=== PATIENT | female | born 1960 | race Caucasian/White ===

== ENCOUNTER 2020-03-26 13:37 | Inpatient (IN) ==
[2020-03-26] MEDS ORDERED: methylPREDNISolone SOD SUC 125 MG/2 ML VIAL IV STA (14:57)
[2020-03-26] MEDS ORDERED: ALBUTEROL/IPRATROPIUM 3 ML NEB RESP TX STA (14:57)
[2020-03-26 15:08] LABS: Basophils # 0.1 10*3/uL (0.0-0.2); Basophils % 0.6 % (0.0-0.8); Eosinophils # 0.2 10*3/uL (0.0-0.87); Eosinophils % 2.1 % (0.00-10.9); Hematocrit 25.4 VOL% (35.7-47.0); Hemoglobin 7.4 GM/DL (12.0-16.0); Immature Granulocytes % 6.1 %; Immature Granulocytes Absolute 0.66 #; Lymphocytes # 1.2 10*3/uL (1.4-4.0); Mean Corpuscular HGB Conc 29.1 GM/DL (32-36); Mean Corpuscular Volume 96.6 FL (87-102); Mean Platelet Volume 10.5 FL (9.6-12.0); Monocytes % 6.4 % (1.7-12.7); NRBC # 0.12 10*3/uL; Neutrophils % 73.8 % (38.7-73.9); Platelet Count 296 T/CUMM (130-400); Red Blood Count 2.63 MC/CUMM (3.8-5.5); Red Cell Distribution Width 17.6 % (9.3-17.3); White Blood Count 10.8 T/CUMM (4-12)
[2020-03-26 15:19] LABS: Alanine Aminotransferase 22 U/L (13-56); Alkaline Phosphatase 118 U/L (45-117); Aspartate Amino Transferase 17 U/L (0-37); Bilirubin,Total < 0.39 MG/DL (0.2-1.0); Blood Urea Nitrogen 92 MG/DL (7-18); Estimated Glom Filtration Rate 3 ML/MIN; Glucose 84 MG/DL (74-106); Total Protein 7.3 G/DL (6.4-8.3)
[2020-03-26 15:26] LABS: Calcium 6.3 MG/DL (8.5-10.1)
[2020-03-26 15:43] LABS: Band Neutrophils 2 % (0-10); Eosinophils 1 % (0-10); Lymphocytes 14 % (20-55); Macrocytosis 1+; Metamyelocytes 1 %; Nucleated Red Blood Cells 1 (0-5); Platelet Estimate Normal; Segmented Neutrophils 74 % (50-85); Total Cells Counted 100
[2020-03-26 15:44] LABS: Anisocytosis 2+; Hypersegmented Neutrophil 1+; Hypochromasia 2+; Polychromasia 1+
[2020-03-26] MEDS ORDERED: ALBUTEROL INHALER 18 GM INH PRN (17:12)
[2020-03-26] MEDS ORDERED: LACTULOSE 20 GM/30 ML UDCUP PO PRN (17:15)
[2020-03-26] MEDS ORDERED: CALCIUM CARBONATE CHEW 500 MG TABLET PO PRN (17:15)
[2020-03-26] MEDS ORDERED: BISACODYL 5 MG TABLET PO PRN (17:15)
[2020-03-26] MEDS ORDERED: guaiFENesin/DM ER 600-30 MG TABLET PO PRN (17:15)
[2020-03-26] MEDS ORDERED: ONDANSETRON 4 MG/2 ML VIAL IV PRN (17:15)
[2020-03-26] MEDS ORDERED: hydrALAZINE 20 MG/1 ML VIAL IV PRN (17:15)
[2020-03-26] MEDS ORDERED: SIMETHICONE CHEW 125 MG TABLET PO PRN (17:15)
[2020-03-26] MEDS ORDERED: DOCUSATE SODIUM 100 MG CAPSULE PO PRN (17:15)
[2020-03-26] MEDS ORDERED: ZALEPLON 5 MG CAPSULE PO PRN (17:15)
[2020-03-26] MEDS ORDERED: GLUCAGON 1 MG VIAL IM PRN (17:15)
[2020-03-26] MEDS ORDERED: diphenhydrAMINE CAP 25 MG CAPSULE PO PRN (17:15)
[2020-03-26] MEDS ORDERED: ALUMINUM/MAGNES/SIMETH MAX STR 30 ML UDCUP PO PRN (17:15)
[2020-03-26] MEDS ORDERED: SODIUM CHLORIDE 0.9% 1,000 ML IV PRN (17:18)
[2020-03-26 17:28] LABS: ABG Base Excess -14.9 MMOL/L (-2.5-2.5); ABG HCO3 12.6 MMOL/L (20-26); ABG Oxygen Saturation 82.5 % (95-100); ABG PCO2 39.4 MM HG (35-48); ABG PO2 55.3 MM HG (80-95); Allen Test Positive
[2020-03-26] MEDS ORDERED: AZITHROMYCIN INJ 500 MG in SODIUM CHLORIDE 0.9% 250 ML IV SCH (17:30)
[2020-03-26 17:36] LABS: ABG PH 7.135 (7.35-7.45)
[2020-03-26] MEDS ORDERED: FUROSEMIDE 40 MG/4 ML VIAL IV STA (18:06)
[2020-03-26 18:46] LABS: Ferritin 506.5 ng/ml (8-252)
[2020-03-26] MEDS: cefTRIAXone 1,000 MG in SYRINGE 1 EACH IV SCH (19:05)
[2020-03-26] MEDS: INSULIN REGULAR 100 UNIT/ML SUBCUT SCH (20:36)
[2020-03-26] MEDS ORDERED: FUROSEMIDE 20 MG TABLET PO SCH (21:00)
[2020-03-26] MEDS ORDERED: AZITHROMYCIN 250 MG TABLET PO ONE (21:00)
[2020-03-26] MEDS: carvediloL 3.125 MG TABLET PO SCH (21:22)
[2020-03-26] MEDS: ROSUVASTATIN 20 MG TABLET PO SCH (21:23)
[2020-03-26] MEDS: LOSARTAN 50 MG TABLET PO SCH (21:23)
[2020-03-26] MEDS: HEPARIN 5,000 UNIT/1 ML VIAL SUBCUT SCH (21:23)
[2020-03-26] MEDS: traZODone 50 MG TABLET PO PRN (21:24)
[2020-03-26] MEDS: LATANOPROST 0.005% OPH SOLN 2.5 ML BOTTLE BOTH EYES SCH (21:24)
[2020-03-27] MEDS: ALBUTEROL INHALER 18 GM INH SCH ×4 (00:10→18:03)
[2020-03-27 00:17] LABS: ABG Base Excess -14.5 MMOL/L (-2.5-2.5); ABG HCO3 14.1 MMOL/L (20-26); ABG Oxygen Saturation 70.7 % (95-100); ABG PCO2 46.2 MM HG (35-48); ABG PO2 44.3 MM HG (80-95); ABG TCO2 15.5 MMOL/L (23-27); Allen Test Positive
[2020-03-27 00:21] LABS: ABG PH 7.101 (7.35-7.45)
[2020-03-27 05:03] LABS: Basophils % 0.4 % (0.0-0.8); Eosinophils # 0.3 10*3/uL (0.0-0.87); Eosinophils % 3.2 % (0.00-10.9); Hematocrit 23.4 VOL% (35.7-47.0); Hemoglobin 6.5 GM/DL (12.0-16.0); Immature Granulocytes % 6.1 %; Lymphocytes # 1.2 10*3/uL (1.4-4.0); Lymphocytes % 12.3 % (21.3-54.2); Mean Corpuscular HGB Conc 27.8 GM/DL (32-36); Mean Corpuscular Volume 99.2 FL (87-102); Mean Platelet Volume 10.4 FL (9.6-12.0); Monocytes % 7.9 % (1.7-12.7); NRBC # 0.14 10*3/uL; Neutrophils % 70.1 % (38.7-73.9); Platelet Count 257 T/CUMM (130-400); Red Blood Count 2.36 MC/CUMM (3.8-5.5); Red Cell Distribution Width 17.7 % (9.3-17.3); White Blood Count 9.9 T/CUMM (4-12)
[2020-03-27 05:27] LABS: Eosinophils 4 % (0-10); Hypochromasia 1+; Lymphocytes 12 % (20-55); Nucleated Red Blood Cells 2 (0-5); Platelet Estimate Adequate; Segmented Neutrophils 77 % (50-85); Total Cells Counted 100
[2020-03-27 05:28] LABS: Macrocytosis Slight
[2020-03-27 05:57] LABS: Albumin 2.5 G/DL (3.4-5.0); Ferritin 469.1 ng/ml (8-252); Total Protein 6.8 G/DL (6.4-8.3)
[2020-03-27] MEDS: HEPARIN 5,000 UNIT/1 ML VIAL SUBCUT SCH ×2 (06:03→13:53)
[2020-03-27 06:14] LABS: Risk Ratio 4.42; VLDL CHOLESTEROL 42.4 MG/DL
[2020-03-27 06:18] LABS: Calcium 5.7 MG/DL (8.5-10.1)
[2020-03-27 06:58] LABS: Sedimentation Rate-Westergren 105 MM/HR (0-30)
[2020-03-27] MEDS: INSULIN REGULAR 100 UNIT/ML SUBCUT SCH ×4 (07:54→20:06)
[2020-03-27] MEDS: FUROSEMIDE 20 MG/2 ML VIAL IV SCH ×2 (08:32→17:07)
[2020-03-27] MEDS: carvediloL 3.125 MG TABLET PO SCH ×2 (08:33→21:11)
[2020-03-27] MEDS: amLODIPine 10 MG TABLET PO SCH (08:33)
[2020-03-27] MEDS: LOSARTAN 50 MG TABLET PO SCH ×2 (08:33→21:11)
[2020-03-27] MEDS: INSULIN NPH/REGULAR 70/30 100 UNIT/ML SUBCUT SCH (08:33)
[2020-03-27] MEDS: LORATADINE 10 MG TABLET PO SCH (08:33)
[2020-03-27] MEDS: PANTOPRAZOLE 40 MG TABLET PO SCH (08:33)
[2020-03-27] MEDS ORDERED: FENOFIBRATE 48 MG TABLET PO SCH (09:00)
[2020-03-27] MEDS ORDERED: POTASSIUM CHLORIDE 8 MEQ CAPSULE PO SCH (09:00)
[2020-03-27] MEDS ORDERED: BUPIVACAINE 0.25% /EPI 10 ML VIAL ONE (10:26)
[2020-03-27] MEDS ORDERED: HEPARIN 5,000 UNIT/1 ML VIAL ONE (10:26)
[2020-03-27] MEDS ORDERED: LIDOCAINE 1%/EPI INJ 20 ML VIAL ONE (10:26)
[2020-03-27] MEDS ORDERED: MIDAZOLAM 2 MG/2 ML VIAL ONE (11:46)
[2020-03-27 12:10] LABS: Hepatitis B Core IgM Quant 0.19 Index; Hepatitis B Surface Ag Quant 0.16 Index; Hepatitis B Surface Ag Result Negative (Negative); Hepatitis C Virus Ab Quant 0.09 Index; Hepatitis C Virus Ab Result Negative (Negative)
[2020-03-27] MEDS ORDERED: HEPARIN 10,000 UNIT/10 ML VIAL IV SCH (14:15)
[2020-03-27] MEDS ORDERED: INSULIN NPH/REGULAR 70/30 100 UNIT/ML SUBCUT SCH (16:30)
[2020-03-27] MEDS: HEPARIN DRIP 25,000 UNITS/500 ML PREMIX IV SCH (17:08)
[2020-03-27] MEDS ORDERED: EZETIMIBE 10 MG TABLET PO SCH (21:00)
[2020-03-27] MEDS: ROSUVASTATIN 20 MG TABLET PO SCH (21:11)
[2020-03-27] MEDS: cefTRIAXone 1,000 MG in SYRINGE 1 EACH IV SCH (21:12)
[2020-03-27] MEDS: LATANOPROST 0.005% OPH SOLN 2.5 ML BOTTLE BOTH EYES SCH (21:12)
[2020-03-27] MEDS: AZITHROMYCIN 250 MG TABLET PO SCH (21:12)
[2020-03-27] MEDS: ACETAMINOPHEN 325 MG TABLET PO PRN (21:13)
[2020-03-28] MEDS: ALBUTEROL INHALER 18 GM INH SCH ×4 (00:42→20:32)
[2020-03-28 01:45] LABS: Basophils # 0.1 10*3/uL (0.0-0.2); Basophils % 0.5 % (0.0-0.8); Eosinophils # 0.3 10*3/uL (0.0-0.87); Eosinophils % 3.4 % (0.00-10.9); Hematocrit 30.1 VOL% (35.7-47.0); Immature Granulocytes % 2.8 %; Immature Granulocytes Absolute 0.28 #; Lymphocytes # 1.1 10*3/uL (1.4-4.0); Lymphocytes % 11.1 % (21.3-54.2); Mean Corpuscular HGB Conc 30.6 GM/DL (32-36); Mean Corpuscular Volume 91.2 FL (87-102); Mean Platelet Volume 10.8 FL (9.6-12.0); Monocytes % 8.7 % (1.7-12.7); NRBC # 0.14 10*3/uL; Neutrophils % 73.5 % (38.7-73.9); Platelet Count 229 T/CUMM (130-400); Red Cell Distribution Width 17.9 % (9.3-17.3); White Blood Count 10.1 T/CUMM (4-12)
[2020-03-28 01:48] LABS: Hemoglobin 9.2 GM/DL (12.0-16.0)
[2020-03-28 02:37] LABS: Alanine Aminotransferase 17 U/L (13-56); Albumin 2.4 G/DL (3.4-5.0); Alkaline Phosphatase 88 U/L (45-117); Aspartate Amino Transferase 18 U/L (0-37); Bilirubin,Total < 0.39 MG/DL (0.2-1.0); Blood Urea Nitrogen 61 MG/DL (7-18); Calcium 6.1 MG/DL (8.5-10.1); Estimated Glom Filtration Rate 4 ML/MIN; Osmolality,Calculated 292.4 MOS/KG (273-304); Total Protein 6.7 G/DL (6.4-8.3)
[2020-03-28 02:42] LABS: Glucose 46 MG/DL (74-106)
[2020-03-28 03:54] LABS: Sedimentation Rate-Westergren 87 MM/HR (0-30)
[2020-03-28] MEDS ORDERED: DEXTROSE 10% 250 ML BAG IV PRN (04:47)
[2020-03-28] MEDS ORDERED: DEXTROSE 50% 25 GM/50 ML SYRINGE IV ONE (05:00)
[2020-03-28] MEDS: DEXTROSE 10% 250 ML BAG IV PRN ×3 (06:38→11:27)
[2020-03-28] MEDS: carvediloL 3.125 MG TABLET PO SCH ×2 (09:07→20:32)
[2020-03-28] MEDS: FUROSEMIDE 20 MG/2 ML VIAL IV SCH ×2 (09:07→15:26)
[2020-03-28] MEDS: PANTOPRAZOLE 40 MG TABLET PO SCH (09:07)
[2020-03-28] MEDS: LORATADINE 10 MG TABLET PO SCH (09:07)
[2020-03-28] MEDS: amLODIPine 10 MG TABLET PO SCH (09:07)
[2020-03-28] MEDS: LOSARTAN 50 MG TABLET PO SCH ×2 (09:07→20:33)
[2020-03-28] MEDS: INSULIN NPH/REGULAR 70/30 100 UNIT/ML SUBCUT SCH (09:36)
[2020-03-28] MEDS: INSULIN REGULAR 100 UNIT/ML SUBCUT SCH ×2 (09:36→12:48)
[2020-03-28] MEDS: DEXTROSE 5% 1,000 ML IV SCH (12:04)
[2020-03-28] MEDS: HEPARIN DRIP 25,000 UNITS/500 ML PREMIX IV SCH ×2 (15:01→20:00)
[2020-03-28] MEDS: WARFARIN 5 MG TABLET PO SCH (20:32)
[2020-03-28] MEDS: cefTRIAXone 1,000 MG in SYRINGE 1 EACH IV SCH (20:33)
[2020-03-28] MEDS: ROSUVASTATIN 20 MG TABLET PO SCH (20:33)
[2020-03-28] MEDS: AZITHROMYCIN 250 MG TABLET PO SCH (20:34)
[2020-03-28] MEDS: LATANOPROST 0.005% OPH SOLN 2.5 ML BOTTLE BOTH EYES SCH (22:02)
[2020-03-29] MEDS: ALBUTEROL INHALER 18 GM INH SCH ×4 (00:07→20:01)
[2020-03-29 06:55] LABS: Basophils # 0.1 10*3/uL (0.0-0.2); Basophils % 0.5 % (0.0-0.8); Eosinophils # 0.3 10*3/uL (0.0-0.87); Hematocrit 30.6 VOL% (35.7-47.0); Hemoglobin 9.3 GM/DL (12.0-16.0); Immature Granulocytes % 2.1 %; Lymphocytes # 1.3 10*3/uL (1.4-4.0); Lymphocytes % 13.7 % (21.3-54.2); Mean Corpuscular HGB Conc 30.4 GM/DL (32-36); Mean Platelet Volume 10.6 FL (9.6-12.0); Monocytes % 12.1 % (1.7-12.7); NRBC # 0.04 10*3/uL; Neutrophils % 68.6 % (38.7-73.9); Platelet Count 241 T/CUMM (130-400); Red Cell Distribution Width 17.5 % (9.3-17.3); White Blood Count 9.5 T/CUMM (4-12)
[2020-03-29 07:27] LABS: Alanine Aminotransferase 14 U/L (13-56); Albumin 2.2 G/DL (3.4-5.0); Alkaline Phosphatase 77 U/L (45-117); Aspartate Amino Transferase 16 U/L (0-37); Bilirubin,Total < 0.39 MG/DL (0.2-1.0); Blood Urea Nitrogen 29 MG/DL (7-18); Calcium 6.5 MG/DL (8.5-10.1); Estimated Glom Filtration Rate 7 ML/MIN; Glucose 99 MG/DL (74-106); Osmolality,Calculated 273.2 MOS/KG (273-304); Total Protein 6.5 G/DL (6.4-8.3)
[2020-03-29] MEDS: PANTOPRAZOLE 40 MG TABLET PO SCH (08:30)
[2020-03-29] MEDS: amLODIPine 10 MG TABLET PO SCH (08:31)
[2020-03-29] MEDS: carvediloL 3.125 MG TABLET PO SCH ×2 (08:31→20:01)
[2020-03-29] MEDS: LORATADINE 10 MG TABLET PO SCH (08:31)
[2020-03-29] MEDS: LOSARTAN 50 MG TABLET PO SCH ×2 (08:31→20:01)
[2020-03-29] MEDS: FUROSEMIDE 20 MG/2 ML VIAL IV SCH ×2 (08:31→15:08)
[2020-03-29 09:33] LABS: Sedimentation Rate-Westergren 73 MM/HR (0-30)
[2020-03-29 11:44] LABS: INR 1.2; PT Patient Result 12.9 SECS (9.8-11.9)
[2020-03-29] MEDS: DEXTROSE 5% 1,000 ML IV SCH (15:12)
[2020-03-29 16:18] LABS: INR 1.1; PT Patient Result 11.9 SECS (9.8-11.9)
[2020-03-29] MEDS: LATANOPROST 0.005% OPH SOLN 2.5 ML BOTTLE BOTH EYES SCH (20:01)
[2020-03-29] MEDS: WARFARIN 5 MG TABLET PO SCH (20:01)
[2020-03-29] MEDS: ROSUVASTATIN 20 MG TABLET PO SCH (20:01)
[2020-03-29] MEDS: cefTRIAXone 1,000 MG in SYRINGE 1 EACH IV SCH (20:01)
[2020-03-29] MEDS: AZITHROMYCIN 250 MG TABLET PO SCH (20:01)
[2020-03-29] MEDS: traZODone 50 MG TABLET PO PRN (20:01)
[2020-03-30] MEDS: ALBUTEROL INHALER 18 GM INH SCH ×4 (01:07→19:17)
[2020-03-30 05:37] LABS: Basophils % 0.4 % (0.0-0.8); Eosinophils # 0.3 10*3/uL (0.0-0.87); Hematocrit 30.7 VOL% (35.7-47.0); Hemoglobin 9.4 GM/DL (12.0-16.0); Immature Granulocytes % 1.3 %; Immature Granulocytes Absolute 0.12 #; Lymphocytes # 1.5 10*3/uL (1.4-4.0); Lymphocytes % 16.6 % (21.3-54.2); Mean Corpuscular HGB Conc 30.6 GM/DL (32-36); Mean Corpuscular Volume 90.3 FL (87-102); Mean Platelet Volume 10.5 FL (9.6-12.0); Monocytes % 13.6 % (1.7-12.7); NRBC # 0.03 10*3/uL; Neutrophils % 65.1 % (38.7-73.9); Platelet Count 215 T/CUMM (130-400); Red Cell Distribution Width 17.2 % (9.3-17.3); White Blood Count 8.9 T/CUMM (4-12)
[2020-03-30] MEDS: DEXTROSE 5% 1,000 ML IV SCH (05:39)
[2020-03-30 06:05] LABS: Albumin 2.1 G/DL (3.4-5.0); Bilirubin,Total 0.4 MG/DL (0.2-1.0); Calcium 6.8 MG/DL (8.5-10.1); Osmolality,Calculated 272.1 MOS/KG (273-304); Total Protein 6.1 G/DL (6.4-8.3)
[2020-03-30 06:20] LABS: INR 1.1; PT Patient Result 11.7 SECS (9.8-11.9)
[2020-03-30] MEDS: LOSARTAN 50 MG TABLET PO SCH ×2 (08:47→22:00)
[2020-03-30] MEDS: LORATADINE 10 MG TABLET PO SCH (08:47)
[2020-03-30] MEDS: PANTOPRAZOLE 40 MG TABLET PO SCH (08:47)
[2020-03-30] MEDS: amLODIPine 10 MG TABLET PO SCH (08:47)
[2020-03-30] MEDS: carvediloL 3.125 MG TABLET PO SCH ×2 (08:47→22:00)
[2020-03-30] MEDS: FUROSEMIDE 20 MG/2 ML VIAL IV SCH ×2 (08:48→15:41)
[2020-03-30] MEDS: HEPARIN DRIP 25,000 UNITS/500 ML PREMIX IV SCH (08:53)
[2020-03-30] MEDS: HEPARIN 5,000 UNIT/1 ML VIAL IV PRN (08:56)
[2020-03-30 12:27] LABS: Sedimentation Rate-Westergren 80 MM/HR (0-30)
[2020-03-30] MEDS: AZITHROMYCIN 250 MG TABLET PO SCH (22:00)
[2020-03-30] MEDS: ROSUVASTATIN 20 MG TABLET PO SCH (22:00)
[2020-03-30] MEDS: LATANOPROST 0.005% OPH SOLN 2.5 ML BOTTLE BOTH EYES SCH (23:02)
[2020-03-30] MEDS: WARFARIN 3 MG TABLET PO SCH (23:27)
[2020-03-31] MEDS: cefTRIAXone 1,000 MG in SYRINGE 1 EACH IV SCH ×2 (01:21→21:20)
[2020-03-31] MEDS: ALBUTEROL INHALER 18 GM INH SCH ×4 (01:26→21:20)
[2020-03-31] MEDS: DEXTROSE 5% 1,000 ML IV SCH ×2 (06:22→22:18)
[2020-03-31] MEDS: FUROSEMIDE 20 MG/2 ML VIAL IV SCH ×2 (08:26→15:57)
[2020-03-31] MEDS: LOSARTAN 50 MG TABLET PO SCH ×2 (08:26→21:21)
[2020-03-31] MEDS: carvediloL 3.125 MG TABLET PO SCH ×2 (08:26→21:20)
[2020-03-31] MEDS: amLODIPine 10 MG TABLET PO SCH (08:26)
[2020-03-31] MEDS: PANTOPRAZOLE 40 MG TABLET PO SCH (08:26)
[2020-03-31] MEDS: LORATADINE 10 MG TABLET PO SCH (08:26)
[2020-03-31 08:28] LABS: INR 1.2; PT Patient Result 12.6 SECS (9.8-11.9)
[2020-03-31] MEDS: HEPARIN 5,000 UNIT/1 ML VIAL IV PRN (09:00)
[2020-03-31] MEDS: HEPARIN DRIP 25,000 UNITS/500 ML PREMIX IV SCH (12:02)
[2020-03-31] MEDS: ROSUVASTATIN 20 MG TABLET PO SCH (21:21)
[2020-03-31] MEDS: WARFARIN 3 MG TABLET PO SCH (21:21)
[2020-03-31] MEDS: LATANOPROST 0.005% OPH SOLN 2.5 ML BOTTLE BOTH EYES SCH (22:19)
[2020-04-01] MEDS: ALBUTEROL INHALER 18 GM INH SCH ×4 (01:47→21:44)
[2020-04-01 03:21] LABS: Basophils % 0.3 % (0.0-0.8); Eosinophils # 0.3 10*3/uL (0.0-0.87); Eosinophils % 3.2 % (0.00-10.9); Hematocrit 31.5 VOL% (35.7-47.0); Hemoglobin 9.5 GM/DL (12.0-16.0); Immature Granulocytes % 0.7 %; Immature Granulocytes Absolute 0.07 #; Lymphocytes # 1.3 10*3/uL (1.4-4.0); Lymphocytes % 12.7 % (21.3-54.2); Mean Corpuscular HGB Conc 30.2 GM/DL (32-36); Mean Corpuscular Volume 91.8 FL (87-102); Mean Platelet Volume 10.7 FL (9.6-12.0); Monocytes % 10.6 % (1.7-12.7); Neutrophils % 72.5 % (38.7-73.9); Platelet Count 230 T/CUMM (130-400); Red Blood Count 3.43 MC/CUMM (3.8-5.5); Red Cell Distribution Width 16.6 % (9.3-17.3); White Blood Count 10.1 T/CUMM (4-12)
[2020-04-01 03:30] LABS: Calcium 6.4 MG/DL (8.5-10.1); Osmolality,Calculated 279.4 MOS/KG (273-304)
[2020-04-01 03:47] LABS: INR 1.3
[2020-04-01 09:16] LABS: Partial Thromboplastin Time 152.6 SECS (23.9-33.8)
[2020-04-01] MEDS: FUROSEMIDE 20 MG/2 ML VIAL IV SCH ×2 (14:49→16:54)
[2020-04-01] MEDS: carvediloL 3.125 MG TABLET PO SCH ×2 (14:52→21:44)
[2020-04-01] MEDS: PANTOPRAZOLE 40 MG TABLET PO SCH (14:52)
[2020-04-01] MEDS: LORATADINE 10 MG TABLET PO SCH (14:52)
[2020-04-01] MEDS: HEPARIN DRIP 25,000 UNITS/500 ML PREMIX IV SCH (14:58)
[2020-04-01] MEDS: amLODIPine 10 MG TABLET PO SCH (15:11)
[2020-04-01] MEDS: LOSARTAN 50 MG TABLET PO SCH ×2 (15:11→21:44)
[2020-04-01] MEDS ORDERED: WARFARIN 7.5 MG TABLET PO SCH (18:00)
[2020-04-01] MEDS: cefTRIAXone 1,000 MG in SYRINGE 1 EACH IV SCH (21:44)
[2020-04-01] MEDS: ROSUVASTATIN 20 MG TABLET PO SCH (21:44)
[2020-04-01] MEDS: LATANOPROST 0.005% OPH SOLN 2.5 ML BOTTLE BOTH EYES SCH (22:58)
[2020-04-02] MEDS: ALBUTEROL INHALER 18 GM INH SCH ×4 (01:47→18:03)
[2020-04-02 03:38] LABS: Basophils % 0.5 % (0.0-0.8); Eosinophils # 0.2 10*3/uL (0.0-0.87); Eosinophils % 2.8 % (0.00-10.9); Hematocrit 28.6 VOL% (35.7-47.0); Hemoglobin 8.5 GM/DL (12.0-16.0); Immature Granulocytes % 0.5 %; Immature Granulocytes Absolute 0.04 #; Lymphocytes # 1.2 10*3/uL (1.4-4.0); Lymphocytes % 15.6 % (21.3-54.2); Mean Corpuscular HGB Conc 29.7 GM/DL (32-36); Mean Corpuscular Volume 92.6 FL (87-102); Mean Platelet Volume 10.5 FL (9.6-12.0); Monocytes % 11.6 % (1.7-12.7); Platelet Count 203 T/CUMM (130-400); Red Blood Count 3.09 MC/CUMM (3.8-5.5); Red Cell Distribution Width 16.3 % (9.3-17.3); White Blood Count 7.8 T/CUMM (4-12)
[2020-04-02 03:51] LABS: INR 1.5; PT Patient Result 15.6 SECS (9.8-11.9)
[2020-04-02 03:58] LABS: Calcium 6.6 MG/DL (8.5-10.1); Osmolality,Calculated 278.8 MOS/KG (273-304)
[2020-04-02] MEDS: HEPARIN DRIP 25,000 UNITS/500 ML PREMIX IV SCH (09:27)
[2020-04-02] MEDS: amLODIPine 10 MG TABLET PO SCH (09:28)
[2020-04-02] MEDS: carvediloL 3.125 MG TABLET PO SCH ×2 (09:28→20:00)
[2020-04-02] MEDS: PANTOPRAZOLE 40 MG TABLET PO SCH (09:28)
[2020-04-02] MEDS: LORATADINE 10 MG TABLET PO SCH (09:28)
[2020-04-02] MEDS: LOSARTAN 50 MG TABLET PO SCH ×2 (09:28→20:00)
[2020-04-02] MEDS: FUROSEMIDE 20 MG/2 ML VIAL IV SCH ×2 (09:38→17:55)
[2020-04-02] MEDS: DEXTROSE 5% 1,000 ML IV SCH ×2 (09:38→11:28)
[2020-04-02] MEDS: WARFARIN 7.5 MG TABLET PO SCH (17:55)
[2020-04-02] MEDS: ROSUVASTATIN 20 MG TABLET PO SCH (20:00)
[2020-04-02] MEDS: cefTRIAXone 1,000 MG in SYRINGE 1 EACH IV SCH (20:02)
[2020-04-02] MEDS: LATANOPROST 0.005% OPH SOLN 2.5 ML BOTTLE BOTH EYES SCH (21:00)
[2020-04-03] MEDS: ALBUTEROL INHALER 18 GM INH SCH ×3 (01:20→21:45)
[2020-04-03 05:00] LABS: Basophils % 0.4 % (0.0-0.8); Eosinophils # 0.2 10*3/uL (0.0-0.87); Eosinophils % 3.2 % (0.00-10.9); Hematocrit 27.4 VOL% (35.7-47.0); Hemoglobin 8.1 GM/DL (12.0-16.0); Immature Granulocytes % 0.7 %; Immature Granulocytes Absolute 0.05 #; Lymphocytes # 1.2 10*3/uL (1.4-4.0); Lymphocytes % 16.3 % (21.3-54.2); Mean Corpuscular HGB Conc 29.6 GM/DL (32-36); Mean Corpuscular Volume 92.9 FL (87-102); Mean Platelet Volume 10.8 FL (9.6-12.0); Monocytes % 12.3 % (1.7-12.7); Neutrophils % 67.1 % (38.7-73.9); Platelet Count 210 T/CUMM (130-400); Red Blood Count 2.95 MC/CUMM (3.8-5.5); Red Cell Distribution Width 16.2 % (9.3-17.3); White Blood Count 7.6 T/CUMM (4-12)
[2020-04-03 05:12] LABS: Calcium 6.2 MG/DL (8.5-10.1); INR 1.4; Osmolality,Calculated 272.4 MOS/KG (273-304); PT Patient Result 14.8 SECS (9.8-11.9)
[2020-04-03] MEDS: HEPARIN DRIP 25,000 UNITS/500 ML PREMIX IV SCH (05:34)
[2020-04-03] MEDS: PANTOPRAZOLE 40 MG TABLET PO SCH (08:36)
[2020-04-03] MEDS: carvediloL 3.125 MG TABLET PO SCH ×2 (08:36→21:45)
[2020-04-03] MEDS: FUROSEMIDE 20 MG/2 ML VIAL IV SCH ×2 (08:36→15:23)
[2020-04-03] MEDS: LORATADINE 10 MG TABLET PO SCH (08:37)
[2020-04-03] MEDS: amLODIPine 10 MG TABLET PO SCH (08:37)
[2020-04-03] MEDS: LOSARTAN 50 MG TABLET PO SCH ×2 (08:37→21:45)
[2020-04-03] MEDS: DEXTROSE 5% 1,000 ML IV SCH (08:37)
[2020-04-03] MEDS: WARFARIN 5 MG TABLET PO SCH (17:10)
[2020-04-03 21:03] LABS: INR 1.5; PT Patient Result 15.8 SECS (9.8-11.9)
[2020-04-03] MEDS: LATANOPROST 0.005% OPH SOLN 2.5 ML BOTTLE BOTH EYES SCH (21:45)
[2020-04-03] MEDS: ROSUVASTATIN 20 MG TABLET PO SCH (21:45)
[2020-04-03] MEDS: traZODone 50 MG TABLET PO PRN (22:26)
[2020-04-04] MEDS: ALBUTEROL INHALER 18 GM INH SCH ×3 (00:35→13:06)
[2020-04-04] MEDS: DEXTROSE 5% 1,000 ML IV SCH ×2 (05:05→21:58)
[2020-04-04] MEDS: HEPARIN DRIP 25,000 UNITS/500 ML PREMIX IV SCH (05:08)
[2020-04-04 07:17] LABS: Basophils % 0.4 % (0.0-0.8); Eosinophils # 0.2 10*3/uL (0.0-0.87); Eosinophils % 3.2 % (0.00-10.9); Hematocrit 28.7 VOL% (35.7-47.0); Hemoglobin 8.6 GM/DL (12.0-16.0); Immature Granulocytes % 0.4 %; Immature Granulocytes Absolute 0.03 #; Lymphocytes # 1.3 10*3/uL (1.4-4.0); Lymphocytes % 17.2 % (21.3-54.2); Mean Platelet Volume 11.2 FL (9.6-12.0); Neutrophils % 68.8 % (38.7-73.9); Platelet Count 234 T/CUMM (130-400); Red Blood Count 3.12 MC/CUMM (3.8-5.5); Red Cell Distribution Width 16.3 % (9.3-17.3); White Blood Count 7.4 T/CUMM (4-12)
[2020-04-04 07:29] LABS: INR 1.6; PT Patient Result 17.1 SECS (9.8-11.9)
[2020-04-04 07:33] LABS: Calcium 7.2 MG/DL (8.5-10.1); Osmolality,Calculated 279.5 MOS/KG (273-304)
[2020-04-04] MEDS: LORATADINE 10 MG TABLET PO SCH (08:54)
[2020-04-04] MEDS: LOSARTAN 50 MG TABLET PO SCH ×2 (08:54→21:53)
[2020-04-04] MEDS: amLODIPine 10 MG TABLET PO SCH (08:54)
[2020-04-04] MEDS: carvediloL 3.125 MG TABLET PO SCH ×2 (08:54→21:53)
[2020-04-04] MEDS: FUROSEMIDE 20 MG/2 ML VIAL IV SCH ×2 (08:56→16:49)
[2020-04-04] MEDS: PANTOPRAZOLE 40 MG TABLET PO SCH (09:11)
[2020-04-04] MEDS: WARFARIN 5 MG TABLET PO SCH (17:24)
[2020-04-04] MEDS: ROSUVASTATIN 20 MG TABLET PO SCH (21:53)
[2020-04-04] MEDS: LATANOPROST 0.005% OPH SOLN 2.5 ML BOTTLE BOTH EYES SCH (21:58)
[2020-04-05] MEDS: DEXTROSE 5% 1,000 ML IV SCH ×2 (00:14→18:49)
[2020-04-05 03:20] LABS: INR 1.7; PT Patient Result 17.9 SECS (9.8-11.9)
[2020-04-05] MEDS: HEPARIN DRIP 25,000 UNITS/500 ML PREMIX IV SCH ×2 (06:10→07:46)
[2020-04-05] MEDS: FUROSEMIDE 20 MG/2 ML VIAL IV SCH ×2 (11:44→15:35)
[2020-04-05] MEDS: amLODIPine 10 MG TABLET PO SCH (11:44)
[2020-04-05] MEDS: LORATADINE 10 MG TABLET PO SCH (11:45)
[2020-04-05] MEDS: LOSARTAN 50 MG TABLET PO SCH ×2 (11:45→21:56)
[2020-04-05] MEDS: PANTOPRAZOLE 40 MG TABLET PO SCH (11:45)
[2020-04-05] MEDS: carvediloL 3.125 MG TABLET PO SCH ×2 (11:45→21:56)
[2020-04-05] MEDS: ALBUTEROL INHALER 18 GM INH SCH ×2 (11:49→15:56)
[2020-04-05] MEDS: WARFARIN 5 MG TABLET PO SCH (17:21)
[2020-04-05] MEDS: ROSUVASTATIN 20 MG TABLET PO SCH (21:55)
[2020-04-05] MEDS: traZODone 50 MG TABLET PO PRN (21:58)
[2020-04-05] MEDS: ACETAMINOPHEN 325 MG TABLET PO PRN (21:58)
[2020-04-06] MEDS: LATANOPROST 0.005% OPH SOLN 2.5 ML BOTTLE BOTH EYES SCH ×2 (04:41→20:59)
[2020-04-06 06:27] LABS: INR 1.8; PT Patient Result 18.9 SECS (9.8-11.9)
[2020-04-06] MEDS: ALBUTEROL INHALER 18 GM INH SCH ×3 (08:26→18:56)
[2020-04-06] MEDS: LOSARTAN 50 MG TABLET PO SCH ×2 (08:27→20:58)
[2020-04-06] MEDS: carvediloL 3.125 MG TABLET PO SCH ×2 (08:27→20:58)
[2020-04-06] MEDS: amLODIPine 10 MG TABLET PO SCH (08:27)
[2020-04-06] MEDS: FUROSEMIDE 20 MG/2 ML VIAL IV SCH ×2 (08:29→15:48)
[2020-04-06] MEDS: LORATADINE 10 MG TABLET PO SCH (08:30)
[2020-04-06] MEDS: PANTOPRAZOLE 40 MG TABLET PO SCH (08:30)
[2020-04-06] MEDS: HEPARIN DRIP 25,000 UNITS/500 ML PREMIX IV SCH ×2 (13:49→13:59)
[2020-04-06] MEDS: DEXTROSE 5% 1,000 ML IV SCH ×2 (15:53→16:46)
[2020-04-06] MEDS: WARFARIN 7.5 MG TABLET PO SCH (17:27)
[2020-04-06] MEDS: ROSUVASTATIN 20 MG TABLET PO SCH (20:57)
[2020-04-06] MEDS: ACETAMINOPHEN 325 MG TABLET PO PRN (20:58)
[2020-04-06] MEDS: traZODone 50 MG TABLET PO PRN (20:58)
[2020-04-07 02:48] LABS: PT Patient Result 20.3 SECS (9.8-11.9)
[2020-04-07] MEDS: ALBUTEROL INHALER 18 GM INH SCH ×3 (07:00→13:00)
[2020-04-07] MEDS: HEPARIN DRIP 25,000 UNITS/500 ML PREMIX IV SCH (08:00)
[2020-04-07] MEDS: FUROSEMIDE 20 MG/2 ML VIAL IV SCH (09:09)
[2020-04-07] MEDS: carvediloL 3.125 MG TABLET PO SCH (09:10)
[2020-04-07] MEDS: LOSARTAN 50 MG TABLET PO SCH (09:10)
[2020-04-07] MEDS: PANTOPRAZOLE 40 MG TABLET PO SCH (09:10)
[2020-04-07] MEDS: LORATADINE 10 MG TABLET PO SCH (09:10)
[2020-04-07] MEDS: amLODIPine 10 MG TABLET PO SCH (09:10)
[2020-04-07 11:55] VITALS: BP 137/69
[2020-04-07] MEDS: DEXTROSE 5% 1,000 ML IV SCH (12:00)
== END 2020-04-07 15:25 | disposition home or self-care (01) | DRG 193 ==
LOC: N.ED 13:37 → SUATTDRO 17:15 → N.EDINP 17:15 → N.2E 19:34 → N.3E 03-30 18:14
PROVIDERS: ADMIT Phlebology; ATTEND Internal Medicine

== ENCOUNTER 2020-11-13 13:39 | Inpatient (IN) ==
[2020-11-13] MEDS ORDERED: cefTRIAXone 1,000 MG in SODIUM CHLORIDE 0.9% 100 ML IV STA (13:51)
[2020-11-13] MEDS ORDERED: methylPREDNISolone SOD SUC 125 MG/2 ML VIAL IV STA (13:51)
[2020-11-13] MEDS ORDERED: ALBUTEROL/IPRATROPIUM 3 ML NEB RESP TX STA (13:51)
[2020-11-13] MEDS ORDERED: ETOMIDATE 20 MG/10 ML VIAL IV ONE (13:53)
[2020-11-13] MEDS ORDERED: ROCURONIUM 100 MG/10 ML VIAL IV ONE (13:54)
[2020-11-13 14:17] LABS: ABG Base Excess -3.7 MMOL/L (-2.5-2.5); ABG Oxygen Saturation 75.2 % (95-100); ABG PO2 56.3 MM HG (80-95); ABG TCO2 28.8 MMOL/L (23-27)
[2020-11-13 14:23] LABS: ABG PH 7.076 (7.35-7.45)
[2020-11-13 14:30] LABS: Basophils # 0.1 10*3/uL (0.0-0.2); Basophils % 0.6 % (0.0-0.8); Eosinophils # 0.6 10*3/uL (0.0-0.87); Eosinophils % 3.2 % (0.00-10.9); Hemoglobin 11.4 GM/DL (12.0-16.0); Immature Granulocytes Absolute 0.18 #; Lymphocytes # 6.4 10*3/uL (1.4-4.0); Mean Corpuscular HGB Conc 27.8 GM/DL (32-36); Mean Corpuscular Volume 102.5 FL (87-102); Mean Platelet Volume 11.1 FL (9.6-12.0); Monocytes % 7.3 % (1.7-12.7); NRBC # 0.04 10*3/uL; Neutrophils % 53.9 % (38.7-73.9); Platelet Count 298 T/CUMM (130-400); Red Cell Distribution Width 16.7 % (9.3-17.3); White Blood Count 18.7 T/CUMM (4-12)
[2020-11-13 14:38] LABS: Albumin 3.4 G/DL (3.4-5.0); Bilirubin,Total 0.9 MG/DL (0.2-1.0); Calcium 8.1 MG/DL (8.5-10.1); Osmolality,Calculated 295.4 MOS/KG (273-304); Potassium 3.4 MMOL/L (3.5-5.1); Total Protein 8.2 G/DL (6.4-8.3)
[2020-11-13 15:27] LABS: Anisocytosis 1+; Macrocytosis 1+
[2020-11-13 15:28] LABS: Hypochromasia 1+; Polychromasia Few
[2020-11-13 15:29] LABS: Platelet Estimate Adequate
[2020-11-13] MEDS ORDERED: ONDANSETRON 4 MG/2 ML VIAL IV PRN (15:57)
[2020-11-13] MEDS ORDERED: ACETAMINOPHEN 325 MG TABLET PO PRN (15:57)
[2020-11-13] MEDS ORDERED: DOCUSATE SODIUM 100 MG CAPSULE PO PRN (15:57)
[2020-11-13] MEDS ORDERED: POTASSIUM CHLORIDE 20 MEQ/15 ML UDCUP PO ONE (16:16)
[2020-11-13 16:58] LABS: ABG Base Excess 1.2 MMOL/L (-2.5-2.5); ABG HCO3 25.6 MMOL/L (20-26); ABG PCO2 27.2 MM HG (35-48); ABG PH 7.535 (7.35-7.45); ABG TCO2 20.6 MMOL/L (23-27)
[2020-11-13] MEDS: HEPARIN 5,000 UNIT/1 ML VIAL SUBCUT SCH (17:22)
[2020-11-13] MEDS: PANTOPRAZOLE 40 MG VIAL IV SCH (17:25)
[2020-11-13] MEDS: PIPERACILLIN/TAZOBACTAM 3,375 MG in SODIUM CHLORIDE 0.9% 100 ML IV SCH (17:25)
[2020-11-13] MEDS: INSULIN LISPRO 100 UNIT/ML SUBCUT SCH ×2 (17:45→23:16)
[2020-11-13] MEDS: hydrALAZINE 20 MG/1 ML VIAL IV PRN (18:53)
[2020-11-13] MEDS: ALBUTEROL/IPRATROPIUM 3 ML NEB RESP TX SCH (20:10)
[2020-11-13] MEDS: methylPREDNISolone SOD SUC 40 MG/1 ML VIAL IV SCH (20:55)
[2020-11-13] MEDS ORDERED: VANCOMYCIN INJ 1,500 MG in SODIUM CHLORIDE 0.9% 500 ML IV ONE (21:00)
[2020-11-14] MEDS: hydrALAZINE 20 MG/1 ML VIAL IV PRN (00:47)
[2020-11-14] MEDS: ALBUTEROL/IPRATROPIUM 3 ML NEB RESP TX SCH ×4 (00:58→19:25)
[2020-11-14] MEDS: HEPARIN 5,000 UNIT/1 ML VIAL SUBCUT SCH ×3 (01:01→17:50)
[2020-11-14 04:18] LABS: ABG Base Excess -0.3 MMOL/L (-2.5-2.5); ABG HCO3 20.5 MMOL/L (20-26); ABG Oxygen Saturation 99.1 % (95-100); ABG PCO2 22.9 MM HG (35-48); ABG PH 7.569 (7.35-7.45); ABG PO2 214.3 MM HG (80-95); ABG TCO2 21.2 MMOL/L (23-27)
[2020-11-14] MEDS: PIPERACILLIN/TAZOBACTAM 3,375 MG in SODIUM CHLORIDE 0.9% 100 ML IV SCH ×2 (05:11→17:50)
[2020-11-14 05:41] LABS: Basophils % 0.2 % (0.0-0.8); Hematocrit 34.7 VOL% (35.7-47.0); Immature Granulocytes % 0.8 %; Immature Granulocytes Absolute 0.07 #; Lymphocytes # 0.8 10*3/uL (1.4-4.0); Lymphocytes % 9.7 % (21.3-54.2); Mean Corpuscular HGB Conc 31.7 GM/DL (32-36); Mean Corpuscular Volume 90.1 FL (87-102); Mean Platelet Volume 11.4 FL (9.6-12.0); Monocytes % 2.3 % (1.7-12.7); Platelet Count 210 T/CUMM (130-400); Red Blood Count 3.85 MC/CUMM (3.8-5.5); Red Cell Distribution Width 16.9 % (9.3-17.3); White Blood Count 8.6 T/CUMM (4-12)
[2020-11-14 06:22] LABS: Calcium 8.2 MG/DL (8.5-10.1); Osmolality,Calculated 293.4 MOS/KG (273-304); Potassium 3.9 MMOL/L (3.5-5.1)
[2020-11-14] MEDS: INSULIN LISPRO 100 UNIT/ML SUBCUT SCH ×3 (07:08→18:18)
[2020-11-14] MEDS ORDERED: DEXTROSE 50% 25 GM/50 ML VIAL IV PRN (10:02)
[2020-11-14] MEDS ORDERED: GLUCAGON 1 MG VIAL IM PRN (10:02)
[2020-11-14] MEDS: methylPREDNISolone SOD SUC 40 MG/1 ML VIAL IV SCH ×2 (10:15→20:54)
[2020-11-14] MEDS: PANTOPRAZOLE 40 MG VIAL IV SCH (16:40)
[2020-11-14] MEDS ORDERED: VANCOMYCIN INJ 500 MG in SODIUM CHLORIDE 0.9% 100 ML IV PRN (17:00)
[2020-11-15] MEDS: ALBUTEROL/IPRATROPIUM 3 ML NEB RESP TX SCH ×4 (00:07→19:04)
[2020-11-15] MEDS: INSULIN LISPRO 100 UNIT/ML SUBCUT SCH ×5 (01:16→21:14)
[2020-11-15] MEDS: HEPARIN 5,000 UNIT/1 ML VIAL SUBCUT SCH ×3 (01:17→17:49)
[2020-11-15 04:16] LABS: ABG Base Excess 3.1 MMOL/L (-2.5-2.5); ABG HCO3 24.5 MMOL/L (20-26); ABG Oxygen Saturation 98.4 % (95-100); ABG PCO2 27.4 MM HG (35-48); ABG PH 7.569 (7.35-7.45); ABG PO2 117.4 MM HG (80-95); ABG TCO2 25.3 MMOL/L (23-27); Allen Test Positive; Pt O2 Delivery Device Ventilator
[2020-11-15 04:49] LABS: Basophils % 0.2 % (0.0-0.8); Hematocrit 33.2 VOL% (35.7-47.0); Hemoglobin 10.4 GM/DL (12.0-16.0); Immature Granulocytes % 2.1 %; Immature Granulocytes Absolute 0.19 #; Lymphocytes % 11.1 % (21.3-54.2); Mean Corpuscular HGB Conc 31.3 GM/DL (32-36); Mean Corpuscular Volume 90.5 FL (87-102); Mean Platelet Volume 11.9 FL (9.6-12.0); Monocytes % 5.5 % (1.7-12.7); NRBC # 0.06 10*3/uL; Neutrophils % 81.1 % (38.7-73.9); Platelet Count 213 T/CUMM (130-400); Red Blood Count 3.67 MC/CUMM (3.8-5.5); Red Cell Distribution Width 17.6 % (9.3-17.3); White Blood Count 9.1 T/CUMM (4-12)
[2020-11-15 05:17] LABS: Calcium 7.9 MG/DL (8.5-10.1); Osmolality,Calculated 280.4 MOS/KG (273-304); Potassium 4.1 MMOL/L (3.5-5.1)
[2020-11-15] MEDS: PIPERACILLIN/TAZOBACTAM 3,375 MG in SODIUM CHLORIDE 0.9% 100 ML IV SCH ×2 (06:30→16:25)
[2020-11-15] MEDS: methylPREDNISolone SOD SUC 40 MG/1 ML VIAL IV SCH ×2 (08:49→21:15)
[2020-11-15 12:32] LABS: ABG Base Excess 1.3 MMOL/L (-2.5-2.5); ABG HCO3 25.6 MMOL/L (20-26); ABG Oxygen Saturation 99.6 % (95-100); ABG PCO2 38.1 MM HG (35-48); ABG PH 7.433 (7.35-7.45); ABG TCO2 22.7 MMOL/L (23-27)
[2020-11-15] MEDS ORDERED: amLODIPine 10 MG TABLET PO ONE (14:39)
[2020-11-15] MEDS ORDERED: ALBUTEROL 2.5 MG/3 ML NEB RESP TX PRN (14:54)
[2020-11-15] MEDS ORDERED: LORATADINE 10 MG TABLET PO PRN (14:54)
[2020-11-15] MEDS: PANTOPRAZOLE 40 MG VIAL IV SCH (16:06)
[2020-11-15] MEDS: carvediloL 3.125 MG TABLET PO SCH (16:25)
[2020-11-15] MEDS: NON-FORMULARY MEDICATION (Ferric Citrate [Auryxia] 210 mg iron Tablet) PO SCH (16:25)
[2020-11-15] MEDS ORDERED: VANCOMYCIN INJ 500 MG in SODIUM CHLORIDE 0.9% 100 ML IV ONE (17:00)
[2020-11-15] MEDS ORDERED: carvediloL 3.125 MG TABLET PO SCH (17:00)
[2020-11-15] MEDS: SEVELAMER CARBONATE 800 MG TABLET PO SCH (17:50)
[2020-11-15] MEDS: LATANOPROST 0.005% OPH SOLN 2.5 ML BOTTLE BOTH EYES SCH (21:15)
[2020-11-16] MEDS: ALBUTEROL/IPRATROPIUM 3 ML NEB RESP TX SCH ×4 (00:27→19:42)
[2020-11-16] MEDS ORDERED: MELATONIN 3 MG TABLET PO PRN (00:33)
[2020-11-16] MEDS: HEPARIN 5,000 UNIT/1 ML VIAL SUBCUT SCH ×3 (00:50→16:25)
[2020-11-16 04:02] LABS: ABG Base Excess -0.1 MMOL/L (-2.5-2.5); ABG HCO3 24.3 MMOL/L (20-26); ABG Oxygen Saturation 98.1 % (95-100); ABG PCO2 45.7 MM HG (35-48); ABG PH 7.357 (7.35-7.45); ABG TCO2 23.3 MMOL/L (23-27); Allen Test Positive
[2020-11-16 05:20] LABS: Basophils % 0.3 % (0.0-0.8); Eosinophils % 0.1 % (0.00-10.9); Hematocrit 34.1 VOL% (35.7-47.0); Hemoglobin 10.3 GM/DL (12.0-16.0); Immature Granulocytes Absolute 0.22 #; Lymphocytes # 1.2 10*3/uL (1.4-4.0); Lymphocytes % 10.7 % (21.3-54.2); Mean Corpuscular HGB Conc 30.2 GM/DL (32-36); Mean Corpuscular Volume 92.7 FL (87-102); Mean Platelet Volume 11.2 FL (9.6-12.0); Monocytes % 5.4 % (1.7-12.7); NRBC # 0.05 10*3/uL; Neutrophils % 81.5 % (38.7-73.9); Platelet Count 219 T/CUMM (130-400); Red Blood Count 3.68 MC/CUMM (3.8-5.5); White Blood Count 11.1 T/CUMM (4-12)
[2020-11-16 05:36] LABS: Calcium 7.2 MG/DL (8.5-10.1); Osmolality,Calculated 281.1 MOS/KG (273-304)
[2020-11-16] MEDS: PIPERACILLIN/TAZOBACTAM 3,375 MG in SODIUM CHLORIDE 0.9% 100 ML IV SCH ×2 (06:15→16:26)
[2020-11-16] MEDS: amLODIPine 10 MG TABLET PO SCH (08:08)
[2020-11-16] MEDS: SEVELAMER CARBONATE 800 MG TABLET PO SCH ×3 (08:08→16:24)
[2020-11-16] MEDS: methylPREDNISolone SOD SUC 40 MG/1 ML VIAL IV SCH ×2 (08:09→21:01)
[2020-11-16] MEDS: ROSUVASTATIN 20 MG TABLET PO SCH (08:09)
[2020-11-16] MEDS: carvediloL 3.125 MG TABLET PO SCH ×2 (08:09→16:24)
[2020-11-16] MEDS: INSULIN LISPRO 100 UNIT/ML SUBCUT SCH ×4 (08:10→21:04)
[2020-11-16] MEDS: NON-FORMULARY MEDICATION (Ferric Citrate [Auryxia] 210 mg iron Tablet) PO SCH ×3 (08:10→16:25)
[2020-11-16] MEDS: PANTOPRAZOLE 40 MG VIAL IV SCH (16:24)
[2020-11-16] MEDS: LATANOPROST 0.005% OPH SOLN 2.5 ML BOTTLE BOTH EYES SCH (21:38)
[2020-11-17] MEDS: HEPARIN 5,000 UNIT/1 ML VIAL SUBCUT SCH ×3 (00:25→16:00)
[2020-11-17] MEDS: ALBUTEROL/IPRATROPIUM 3 ML NEB RESP TX SCH ×4 (00:45→19:20)
[2020-11-17] MEDS: PIPERACILLIN/TAZOBACTAM 3,375 MG in SODIUM CHLORIDE 0.9% 100 ML IV SCH ×2 (04:53→21:53)
[2020-11-17 06:35] LABS: Calcium 7.3 MG/DL (8.5-10.1); Osmolality,Calculated 282.5 MOS/KG (273-304); Potassium 3.9 MMOL/L (3.5-5.1)
[2020-11-17 06:46] LABS: Basophils # 0.1 10*3/uL (0.0-0.2); Basophils % 0.6 % (0.0-0.8); Eosinophils % 0.1 % (0.00-10.9); Hematocrit 40.9 VOL% (35.7-47.0); Hemoglobin 12.2 GM/DL (12.0-16.0); Immature Granulocytes % 3.3 %; Immature Granulocytes Absolute 0.33 #; Lymphocytes # 0.9 10*3/uL (1.4-4.0); Lymphocytes % 9.3 % (21.3-54.2); Mean Corpuscular HGB Conc 29.8 GM/DL (32-36); Mean Corpuscular Volume 97.8 FL (87-102); Mean Platelet Volume 10.8 FL (9.6-12.0); Monocytes % 5.9 % (1.7-12.7); NRBC # 0.04 10*3/uL; Neutrophils % 80.8 % (38.7-73.9); Platelet Count 165 T/CUMM (130-400); Red Blood Count 4.18 MC/CUMM (3.8-5.5); Red Cell Distribution Width 16.6 % (9.3-17.3); White Blood Count 9.9 T/CUMM (4-12)
[2020-11-17] MEDS: carvediloL 3.125 MG TABLET PO SCH ×2 (09:42→16:00)
[2020-11-17] MEDS: SEVELAMER CARBONATE 800 MG TABLET PO SCH ×3 (09:42→16:00)
[2020-11-17] MEDS: ROSUVASTATIN 20 MG TABLET PO SCH (09:42)
[2020-11-17] MEDS: amLODIPine 10 MG TABLET PO SCH (09:42)
[2020-11-17] MEDS: NON-FORMULARY MEDICATION (Ferric Citrate [Auryxia] 210 mg iron Tablet) PO SCH ×3 (09:43→16:00)
[2020-11-17] MEDS: INSULIN LISPRO 100 UNIT/ML SUBCUT SCH ×4 (09:44→21:54)
[2020-11-17] MEDS: methylPREDNISolone SOD SUC 40 MG/1 ML VIAL IV SCH ×2 (12:54→21:52)
[2020-11-17] MEDS: hydrALAZINE 20 MG/1 ML VIAL IV PRN (12:54)
[2020-11-17] MEDS: PANTOPRAZOLE 40 MG VIAL IV SCH (15:53)
[2020-11-17] MEDS: LATANOPROST 0.005% OPH SOLN 2.5 ML BOTTLE BOTH EYES SCH (21:55)
[2020-11-18] MEDS: ALBUTEROL/IPRATROPIUM 3 ML NEB RESP TX SCH ×2 (00:33→07:41)
[2020-11-18] MEDS: HEPARIN 5,000 UNIT/1 ML VIAL SUBCUT SCH ×2 (02:38→08:07)
[2020-11-18 05:38] LABS: Basophils # 0.1 10*3/uL (0.0-0.2); Basophils % 0.5 % (0.0-0.8); Eosinophils # 0.2 10*3/uL (0.0-0.87); Eosinophils % 1.6 % (0.00-10.9); Hematocrit 34.9 VOL% (35.7-47.0); Hemoglobin 10.7 GM/DL (12.0-16.0); Immature Granulocytes % 5.5 %; Lymphocytes # 1.1 10*3/uL (1.4-4.0); Lymphocytes % 9.7 % (21.3-54.2); Mean Corpuscular HGB Conc 30.7 GM/DL (32-36); Mean Corpuscular Volume 94.8 FL (87-102); Mean Platelet Volume 11.5 FL (9.6-12.0); Monocytes % 6.9 % (1.7-12.7); NRBC # 0.05 10*3/uL; Neutrophils % 75.8 % (38.7-73.9); Platelet Count 225 T/CUMM (130-400); Red Blood Count 3.68 MC/CUMM (3.8-5.5); Red Cell Distribution Width 16.5 % (9.3-17.3)
[2020-11-18 05:53] LABS: Calcium 6.3 MG/DL (8.5-10.1); Osmolality,Calculated 300.7 MOS/KG (273-304)
[2020-11-18 06:10] LABS: Band Neutrophils 1 % (0-10); Eosinophils 2 % (0-10); Hypochromasia 1+; Lymphocytes 7 % (20-55); Microcytosis 1+; Platelet Estimate Adequate; Segmented Neutrophils 81 % (50-85); Total Cells Counted 100
[2020-11-18] MEDS: ROSUVASTATIN 20 MG TABLET PO SCH (08:06)
[2020-11-18] MEDS: NON-FORMULARY MEDICATION (Ferric Citrate [Auryxia] 210 mg iron Tablet) PO SCH ×2 (08:06→13:44)
[2020-11-18] MEDS: SEVELAMER CARBONATE 800 MG TABLET PO SCH ×2 (08:06→13:44)
[2020-11-18] MEDS: carvediloL 3.125 MG TABLET PO SCH (08:06)
[2020-11-18] MEDS: amLODIPine 10 MG TABLET PO SCH (08:06)
[2020-11-18] MEDS: methylPREDNISolone SOD SUC 40 MG/1 ML VIAL IV SCH (08:07)
[2020-11-18] MEDS: PIPERACILLIN/TAZOBACTAM 3,375 MG in SODIUM CHLORIDE 0.9% 100 ML IV SCH (08:08)
[2020-11-18] MEDS: INSULIN LISPRO 100 UNIT/ML SUBCUT SCH ×2 (08:13→13:30)
[2020-11-18] MEDS ORDERED: LEVOFLOXACIN 500 MG TABLET PO SCH (09:00)
[2020-11-18] MEDS ORDERED: HEPARIN 10,000 UNIT/10 ML VIAL IV SCH (11:30)
[2020-11-18 13:31] VITALS: BP 178/98
== END 2020-11-18 14:01 | disposition home health service (06) | DRG 208 ==
LOC: EDUNIT# → N.ED 13:39 → SUATTDRO 15:57 → N.EDINP 15:57 → N.ICU 18:19 → N.5E 11-16 14:00
PROVIDERS: ADMIT Internal Medicine; ATTEND Internal Medicine

== ENCOUNTER 2021-10-29 06:22 | Inpatient (IN) ==
[2021-10-28 16:44] LABS: Basophils % 0.5 % (0.0-0.8); Eosinophils # 0.3 10*3/uL (0.0-0.87); Eosinophils % 4.3 % (0.00-10.9); Immature Granulocytes % 1.1 %; Immature Granulocytes Absolute 0.07 #; Lymphocytes # 1.3 10*3/uL (1.4-4.0); Lymphocytes % 20.5 % (21.3-54.2); Mean Corpuscular HGB Conc 30.8 GM/DL (32-36); Mean Corpuscular Volume 98.9 FL (87-102); Mean Platelet Volume 10.1 FL (9.6-12.0); NRBC # 0.03 10*3/uL; Neutrophils % 67.6 % (38.7-73.9); Platelet Count 280 T/CUMM (130-400); Red Blood Count 2.63 MC/CUMM (3.8-5.5); White Blood Count 6.5 T/CUMM (4-12)
[2021-10-28 17:05] LABS: Calcium 8.1 MG/DL (8.5-10.1); Osmolality,Calculated 296.5 MOS/KG (273-304); Potassium 4.5 MMOL/L (3.5-5.1)
[2021-10-29] MEDS ORDERED: BUPIVACAINE 0.5% 50 ML VIAL ONE (07:01)
[2021-10-29] MEDS ORDERED: HEPARIN 5,000 UNIT/1 ML VIAL ONE (07:01)
[2021-10-29] MEDS ORDERED: LIDOCAINE 1%/EPI INJ 20 ML VIAL ONE (07:01)
[2021-10-29] MEDS ORDERED: MIDAZOLAM 2 MG/2 ML VIAL ONE ×2 (07:14→10:47)
[2021-10-29] MEDS ORDERED: KETAMINE 500 MG/10 ML VIAL ONE (07:14)
[2021-10-29] MEDS ORDERED: GLYCOPYRROLATE 0.4 MG/2 ML VIAL ONE (07:14)
[2021-10-29] MEDS ORDERED: ALBUTEROL/IPRATROPIUM 3 ML NEB RESP TX STA (07:33)
[2021-10-29 07:37] LABS: Basophils % 0.4 % (0.0-0.8); Eosinophils # 0.3 10*3/uL (0.0-0.87); Eosinophils % 3.8 % (0.00-10.9); Hematocrit 24.2 VOL% (35.7-47.0); Hemoglobin 7.3 GM/DL (12.0-16.0); Immature Granulocytes % 1.5 %; Lymphocytes # 1.1 10*3/uL (1.4-4.0); Lymphocytes % 15.9 % (21.3-54.2); Mean Corpuscular HGB Conc 30.2 GM/DL (32-36); Mean Corpuscular Volume 100.4 FL (87-102); Mean Platelet Volume 9.9 FL (9.6-12.0); Monocytes % 6.2 % (1.7-12.7); NRBC # 0.04 10*3/uL; Neutrophils % 72.2 % (38.7-73.9); Platelet Count 253 T/CUMM (130-400); Red Blood Count 2.41 MC/CUMM (3.8-5.5); White Blood Count 6.8 T/CUMM (4-12)
[2021-10-29] MEDS ORDERED: ceFAZolin 1,000 MG VIAL ONE (07:37)
[2021-10-29 07:52] LABS: Calcium 7.9 MG/DL (8.5-10.1); Osmolality,Calculated 303.3 MOS/KG (273-304); Potassium 4.7 MMOL/L (3.5-5.1)
[2021-10-29] MEDS ORDERED: METOPROLOL TARTRATE 5 MG/5 ML VIAL IV ONE (08:17)
[2021-10-29] MEDS ORDERED: ETOMIDATE 20 MG/10 ML VIAL IV ONE (09:14)
[2021-10-29] MEDS ORDERED: ALBUTEROL 2.5 MG/3 ML NEB RESP TX PRN (09:14)
[2021-10-29] MEDS ORDERED: ROCURONIUM 100 MG/10 ML VIAL IV ONE (09:15)
[2021-10-29] MEDS ORDERED: NON-FORMULARY MEDICATION (Albuterol Sulfate [Ventolin Hfa] 90 MCG/PUFF HFA aerosol inhaler INH PRN (09:17)
[2021-10-29] MEDS ORDERED: LORATADINE 10 MG TABLET PO PRN (09:17)
[2021-10-29] MEDS ORDERED: HEPARIN 10,000 UNIT/10 ML VIAL IV SCH (10:15)
[2021-10-29 10:21] LABS: ABG Base Excess -2.8 MMOL/L (-2.5-2.5); ABG HCO3 23.8 MMOL/L (20-26); ABG PCO2 51.5 MM HG (35-48); ABG PH 7.283 (7.35-7.45); ABG PO2 201.9 MM HG (80-95); ABG TCO2 25.4 MMOL/L (23-27); Allen Test Positive; Pt O2 Delivery Device Ventilator
[2021-10-29] MEDS ORDERED: LORazepam 2 MG/1 ML VIAL ONE (10:48)
[2021-10-29 10:51] LABS: Alanine Aminotransferase 14 U/L (13-56); Albumin 2.8 G/DL (3.4-5.0); Alkaline Phosphatase 56 U/L (45-117); Aspartate Amino Transferase 17 U/L (0-37); Bilirubin,Total < 0.39 MG/DL (0.20-1.00); Blood Urea Nitrogen 63 MG/DL (7-18); Calcium 7.4 MG/DL (8.5-10.1); Carbon Dioxide 26 MMOL/L (21-32); Estimated Glom Filtration Rate 3 ML/MIN; Glucose 136 MG/DL (74-106); Osmolality,Calculated 300.3 MOS/KG (273-304); Potassium 4.6 MMOL/L (3.5-5.1); Sodium 141 MMOL/L (136-145); Total Protein 6.9 G/DL (6.4-8.2)
[2021-10-29] MEDS ORDERED: LORazepam 2 MG/1 ML VIAL IV ONE (10:52)
[2021-10-29] MEDS ORDERED: MIDAZOLAM 2 MG/2 ML VIAL IV ONE (10:52)
[2021-10-29] MEDS: MIDAZOLAM 100 MG in SODIUM CHLORIDE 0.9% 80 ML IV PRN (11:35)
[2021-10-29] MEDS ORDERED: PHENYLEPHRINE DRIP 40 MG/250 ML PREMIX IV PRN (11:49)
[2021-10-29] MEDS: IRON PO SCH ×2 (12:00→17:19)
[2021-10-29] MEDS: FERRIC CITRATE 210 MG PO SCH ×2 (12:00→17:19)
[2021-10-29] MEDS: PANTOPRAZOLE 40 MG VIAL IV SCH (12:35)
[2021-10-29] MEDS: INSULIN REGULAR 100 UNIT/ML SUBCUT SCH ×2 (18:26→23:58)
[2021-10-29 19:21] VITALS: BP 175/71
[2021-10-29] MEDS: carvediloL 3.125 MG TABLET PO SCH (20:42)
[2021-10-29] MEDS: INSULIN NPH/REGULAR 70/30 100 UNIT/ML SUBCUT SCH (21:55)
[2021-10-29] MEDS ORDERED: cloNIDine 0.1 MG TABLET PO ONE (22:42)
[2021-10-29] MEDS: LATANOPROST 0.005% OPH SOLN 2.5 ML BOTTLE BOTH EYES SCH (23:58)
[2021-10-30] MEDS: MIDAZOLAM 100 MG in SODIUM CHLORIDE 0.9% 80 ML IV PRN ×2 (02:36→13:28)
[2021-10-30 04:38] LABS: ABG Base Excess -0.2 MMOL/L (-2.5-2.5); ABG HCO3 24.1 MMOL/L (20-26); ABG Oxygen Saturation 98.5 % (95-100); ABG PCO2 37.7 MM HG (35-48); ABG PH 7.424 (7.35-7.45); ABG PO2 128.3 MM HG (80-95); ABG TCO2 25.3 MMOL/L (23-27)
[2021-10-30 04:52] LABS: Basophils % 0.4 % (0.0-0.8); Eosinophils # 0.1 10*3/uL (0.0-0.87); Eosinophils % 1.1 % (0.00-10.9); Hematocrit 24.1 VOL% (35.7-47.0); Hemoglobin 7.4 GM/DL (12.0-16.0); Immature Granulocytes % 0.9 %; Immature Granulocytes Absolute 0.07 #; Lymphocytes # 1.2 10*3/uL (1.4-4.0); Lymphocytes % 15.7 % (21.3-54.2); Mean Corpuscular HGB Conc 30.7 GM/DL (32-36); Mean Corpuscular Volume 98.4 FL (87-102); Mean Platelet Volume 10.2 FL (9.6-12.0); Monocytes % 8.5 % (1.7-12.7); NRBC # 0.06 10*3/uL; Neutrophils % 73.4 % (38.7-73.9); Platelet Count 251 T/CUMM (130-400); Red Blood Count 2.45 MC/CUMM (3.8-5.5); Red Cell Distribution Width 16.2 % (9.3-17.3); White Blood Count 7.6 T/CUMM (4-12)
[2021-10-30 05:09] LABS: Calcium 7.9 MG/DL (8.5-10.1); Osmolality,Calculated 288.5 MOS/KG (273-304); Potassium 4.5 MMOL/L (3.5-5.1)
[2021-10-30] MEDS: INSULIN REGULAR 100 UNIT/ML SUBCUT SCH ×3 (05:13→18:41)
[2021-10-30] MEDS: IRON PO SCH ×3 (08:31→17:56)
[2021-10-30] MEDS: FERRIC CITRATE 210 MG PO SCH ×3 (08:31→17:56)
[2021-10-30] MEDS: INSULIN NPH/REGULAR 70/30 100 UNIT/ML SUBCUT SCH ×2 (08:31→20:45)
[2021-10-30 13:22] LABS: ABG Base Excess -0.1 MMOL/L (-2.5-2.5); ABG HCO3 24.3 MMOL/L (20-26); ABG Oxygen Saturation 99.9 % (95-100); ABG PCO2 34.7 MM HG (35-48); ABG PH 7.441 (7.35-7.45); ABG TCO2 21.6 MMOL/L (23-27); Allen Test Positive; Pt O2 Delivery Device Ventilator
[2021-10-30] MEDS: ROSUVASTATIN 20 MG TABLET PO SCH (13:39)
[2021-10-30] MEDS: carvediloL 3.125 MG TABLET PO SCH ×2 (13:39→20:37)
[2021-10-30] MEDS: amLODIPine 10 MG TABLET PO SCH (13:39)
[2021-10-30] MEDS: PANTOPRAZOLE 40 MG VIAL IV SCH (13:40)
[2021-10-30] MEDS: LATANOPROST 0.005% OPH SOLN 2.5 ML BOTTLE BOTH EYES SCH (20:46)
[2021-10-31] MEDS: INSULIN REGULAR 100 UNIT/ML SUBCUT SCH ×4 (00:49→18:24)
[2021-10-31 04:12] LABS: ABG Base Excess 0.6 MMOL/L (-2.5-2.5); ABG HCO3 23.6 MMOL/L (20-26); ABG Oxygen Saturation 97.2 % (95-100); ABG PCO2 31.8 MM HG (35-48); ABG PH 7.489 (7.35-7.45); ABG TCO2 24.6 MMOL/L (23-27); Allen Test Positive; Pt O2 Delivery Device Ventilator
[2021-10-31 05:38] LABS: Basophils % 0.3 % (0.0-0.8); Eosinophils # 0.1 10*3/uL (0.0-0.87); Hematocrit 28.2 VOL% (35.7-47.0); Hemoglobin 8.6 GM/DL (12.0-16.0); Immature Granulocytes % 0.8 %; Immature Granulocytes Absolute 0.07 #; Lymphocytes # 1.4 10*3/uL (1.4-4.0); Lymphocytes % 15.5 % (21.3-54.2); Mean Corpuscular HGB Conc 30.5 GM/DL (32-36); Mean Corpuscular Volume 99.6 FL (87-102); Mean Platelet Volume 10.6 FL (9.6-12.0); Monocytes % 11.9 % (1.7-12.7); NRBC # 0.05 10*3/uL; Neutrophils % 70.5 % (38.7-73.9); Platelet Count 242 T/CUMM (130-400); Red Blood Count 2.83 MC/CUMM (3.8-5.5); Red Cell Distribution Width 16.6 % (9.3-17.3); White Blood Count 8.9 T/CUMM (4-12)
[2021-10-31] MEDS ORDERED: DEXTROSE 50% 25 GM/50 ML SYRINGE IV ONE (06:21)
[2021-10-31 06:51] LABS: Calcium 8.3 MG/DL (8.5-10.1); Osmolality,Calculated 280.7 MOS/KG (273-304); Potassium 4.3 MMOL/L (3.5-5.1)
[2021-10-31] MEDS ORDERED: DEXTROSE 10% 250 ML BAG IV PRN ×2 (07:55→08:57)
[2021-10-31] MEDS: PANTOPRAZOLE 40 MG VIAL IV SCH (08:50)
[2021-10-31] MEDS: carvediloL 3.125 MG TABLET PO SCH ×2 (08:50→20:35)
[2021-10-31] MEDS: ROSUVASTATIN 20 MG TABLET PO SCH (08:50)
[2021-10-31] MEDS: amLODIPine 10 MG TABLET PO SCH (08:51)
[2021-10-31] MEDS: IRON PO SCH ×3 (08:51→17:06)
[2021-10-31] MEDS: FERRIC CITRATE 210 MG PO SCH ×3 (08:51→17:06)
[2021-10-31] MEDS: INSULIN NPH/REGULAR 70/30 100 UNIT/ML SUBCUT SCH ×2 (08:52→20:36)
[2021-10-31 12:10] LABS: ABG Base Excess -0.2 MMOL/L (-2.5-2.5); ABG HCO3 24.2 MMOL/L (20-26); ABG Oxygen Saturation 97.6 % (95-100); ABG PCO2 38.2 MM HG (35-48); ABG PO2 104.9 MM HG (80-95); ABG TCO2 25.4 MMOL/L (23-27); Allen Test Positive; Pt O2 Delivery Device Ventilator
[2021-10-31] MEDS: LATANOPROST 0.005% OPH SOLN 2.5 ML BOTTLE BOTH EYES SCH (20:36)
[2021-11-01] MEDS: INSULIN REGULAR 100 UNIT/ML SUBCUT SCH ×4 (01:34→17:49)
[2021-11-01 06:52] LABS: Basophils % 0.5 % (0.0-0.8); Eosinophils # 0.4 10*3/uL (0.0-0.87); Eosinophils % 4.8 % (0.00-10.9); Hemoglobin 7.3 GM/DL (12.0-16.0); Immature Granulocytes % 1.4 %; Immature Granulocytes Absolute 0.12 #; Lymphocytes # 1.5 10*3/uL (1.4-4.0); Lymphocytes % 17.3 % (21.3-54.2); Mean Corpuscular HGB Conc 30.4 GM/DL (32-36); Mean Corpuscular Volume 98.8 FL (87-102); Mean Platelet Volume 10.5 FL (9.6-12.0); Monocytes % 11.1 % (1.7-12.7); NRBC # 0.02 10*3/uL; Neutrophils % 64.9 % (38.7-73.9); Platelet Count 226 T/CUMM (130-400); Red Blood Count 2.43 MC/CUMM (3.8-5.5); Red Cell Distribution Width 16.1 % (9.3-17.3); White Blood Count 8.5 T/CUMM (4-12)
[2021-11-01 07:20] LABS: Calcium 7.8 MG/DL (8.5-10.1); Potassium 4.2 MMOL/L (3.5-5.1)
[2021-11-01] MEDS: INSULIN NPH/REGULAR 70/30 100 UNIT/ML SUBCUT SCH ×2 (08:44→20:02)
[2021-11-01] MEDS: amLODIPine 10 MG TABLET PO SCH (08:53)
[2021-11-01] MEDS: ROSUVASTATIN 20 MG TABLET PO SCH (08:53)
[2021-11-01] MEDS: PANTOPRAZOLE 40 MG TABLET PO SCH (08:53)
[2021-11-01] MEDS: IRON PO SCH ×3 (08:53→16:53)
[2021-11-01] MEDS: carvediloL 3.125 MG TABLET PO SCH ×2 (08:53→20:02)
[2021-11-01] MEDS: FERRIC CITRATE 210 MG PO SCH ×3 (08:53→16:53)
[2021-11-01] MEDS: LATANOPROST 0.005% OPH SOLN 2.5 ML BOTTLE BOTH EYES SCH (20:04)
[2021-11-02] MEDS: INSULIN REGULAR 100 UNIT/ML SUBCUT SCH ×4 (00:01→18:37)
[2021-11-02 06:15] LABS: Basophils % 0.4 % (0.0-0.8); Eosinophils # 0.4 10*3/uL (0.0-0.87); Eosinophils % 5.1 % (0.00-10.9); Hematocrit 24.3 VOL% (35.7-47.0); Hemoglobin 7.3 GM/DL (12.0-16.0); Immature Granulocytes % 1.8 %; Immature Granulocytes Absolute 0.15 #; Lymphocytes # 1.5 10*3/uL (1.4-4.0); Lymphocytes % 17.9 % (21.3-54.2); Mean Corpuscular Volume 99.2 FL (87-102); Mean Platelet Volume 10.5 FL (9.6-12.0); Monocytes % 9.3 % (1.7-12.7); NRBC # 0.02 10*3/uL; Neutrophils % 65.5 % (38.7-73.9); Platelet Count 237 T/CUMM (130-400); Red Blood Count 2.45 MC/CUMM (3.8-5.5); Red Cell Distribution Width 15.9 % (9.3-17.3); White Blood Count 8.2 T/CUMM (4-12)
[2021-11-02 06:48] LABS: Calcium 7.3 MG/DL (8.5-10.1); Osmolality,Calculated 285.2 MOS/KG (273-304); Potassium 4.3 MMOL/L (3.5-5.1)
[2021-11-02] MEDS: amLODIPine 10 MG TABLET PO SCH (09:03)
[2021-11-02] MEDS: ROSUVASTATIN 20 MG TABLET PO SCH (09:03)
[2021-11-02] MEDS: IRON PO SCH ×3 (09:03→18:36)
[2021-11-02] MEDS: carvediloL 3.125 MG TABLET PO SCH ×2 (09:03→22:27)
[2021-11-02] MEDS: PANTOPRAZOLE 40 MG TABLET PO SCH (09:03)
[2021-11-02] MEDS: FERRIC CITRATE 210 MG PO SCH ×3 (09:03→18:36)
[2021-11-02] MEDS: INSULIN NPH/REGULAR 70/30 100 UNIT/ML SUBCUT SCH ×2 (09:04→22:52)
[2021-11-02] MEDS: LATANOPROST 0.005% OPH SOLN 2.5 ML BOTTLE BOTH EYES SCH (22:52)
[2021-11-03] MEDS: INSULIN REGULAR 100 UNIT/ML SUBCUT SCH ×3 (00:35→12:38)
[2021-11-03 06:47] LABS: Calcium 7.9 MG/DL (8.5-10.1); Osmolality,Calculated 279.8 MOS/KG (273-304); Potassium 4.3 MMOL/L (3.5-5.1)
[2021-11-03] MEDS: INSULIN NPH/REGULAR 70/30 100 UNIT/ML SUBCUT SCH (08:53)
[2021-11-03] MEDS: ROSUVASTATIN 20 MG TABLET PO SCH (08:53)
[2021-11-03] MEDS: PANTOPRAZOLE 40 MG TABLET PO SCH (08:54)
[2021-11-03] MEDS: FERRIC CITRATE 210 MG PO SCH ×2 (08:54→12:38)
[2021-11-03] MEDS: IRON PO SCH ×2 (08:54→12:38)
[2021-11-03] MEDS: carvediloL 3.125 MG TABLET PO SCH (08:54)
[2021-11-03] MEDS: amLODIPine 10 MG TABLET PO SCH (08:54)
== END 2021-11-03 04:32 | disposition home health service (06) | DRG 981 ==
LOC: N.OR 06:22 → N.SDSINP 06:25 → N.ICU 09:08 → SUATTDRO 09:14 → N.ICU 09:14
PROVIDERS: ADMIT Surgery; ATTEND Internal Medicine
PROC: VAVDCFI (2021-10-29 08:01)

== ENCOUNTER 2022-07-05 20:26 | Inpatient (IN) ==
[2022-07-05] MEDS ORDERED: FUROSEMIDE 40 MG/4 ML VIAL IV STA (21:19)
[2022-07-05] MEDS ORDERED: NITROGLYCERIN SL 0.4 MG TABLET SL ONE (22:18)
[2022-07-05] MEDS ORDERED: ROCURONIUM 100 MG/10 ML VIAL IV STA (22:24)
[2022-07-05] MEDS ORDERED: ETOMIDATE 20 MG/10 ML VIAL IV STA (22:24)
[2022-07-05 22:45] LABS: Arterial Base Excess iSTAT -7 MMOL/L (-2.5-2.5); Arterial Bicarbonate iSTAT 25.7 MMOL/L (20-26); Arterial O2 Saturation iSTAT 79 % (95-100); Arterial PCO2 iSTAT 100 MM HG (35-48); Arterial PO2 iSTAT 66 MM HG (80-95); Arterial Total CO2 iSTAT 29 MMO/L (23-27); Arterial pH iSTAT 7.019 (7.35-7.45)
[2022-07-05 23:08] LABS: Basophils % 0.3 % (0.0-0.8); Eosinophils # 0.3 10*3/uL (0.0-0.87); Eosinophils % 2.2 % (0.00-10.9); Immature Granulocytes % 1.2 %; Immature Granulocytes Absolute 0.14 #; Lymphocytes # 2.7 10*3/uL (1.4-4.0); Lymphocytes % 22.5 % (21.3-54.2); Mean Corpuscular Volume 100.6 FL (87-102); Mean Platelet Volume 10.9 FL (9.6-12.0); Monocytes # 0.7 10*3/uL (0.11-0.8); NRBC # 0.03 10*3/uL; Neutrophils % 67.8 % (38.7-73.9); Platelet Count 274 T/CUMM (130-400); Red Blood Count 3.08 MC/CUMM (3.8-5.5); Red Cell Distribution Width 16.2 % (9.3-17.3); White Blood Count 12.1 T/CUMM (4-12)
[2022-07-05 23:30] LABS: Albumin 3.7 G/DL (3.4-5.0); Bilirubin,Total 0.5 MG/DL (0.20-1.00); Calcium 7.9 MG/DL (8.5-10.1); Osmolality,Calculated 304.1 MOS/KG (273-304); Potassium 3.8 MMOL/L (3.5-5.1); Total Protein 7.7 G/DL (6.4-8.2)
[2022-07-05] MEDS ORDERED: VECURONIUM 10 MG VIAL IV ONE (23:44)
[2022-07-05] MEDS ORDERED: VECURONIUM 10 MG VIAL IV STA (23:45)
[2022-07-06] MEDS ORDERED: LACTULOSE 20 GM/30 ML UDCUP PO PRN (01:16)
[2022-07-06] MEDS ORDERED: ACETAMINOPHEN 325 MG TABLET PO PRN (01:16)
[2022-07-06] MEDS ORDERED: ALBUTEROL 2.5 MG/3 ML NEB RESP TX PRN (01:16)
[2022-07-06] MEDS ORDERED: hydrALAZINE 20 MG/1 ML VIAL IV PRN (01:16)
[2022-07-06] MEDS ORDERED: ONDANSETRON 4 MG/2 ML VIAL IV PRN (01:16)
[2022-07-06] MEDS ORDERED: ALBUTEROL/IPRATROPIUM 3 ML NEB RESP TX PRN (01:16)
[2022-07-06 01:56] LABS: Arterial Base Excess iSTAT 1 MMOL/L (-2.5-2.5); Arterial Bicarbonate iSTAT 29.6 MMOL/L (20-26); Arterial O2 Saturation iSTAT 89 % (95-100); Arterial PCO2 iSTAT 69 MM HG (35-48); Arterial PO2 iSTAT 69 MM HG (80-95); Arterial Total CO2 iSTAT 32 MMO/L (23-27); Arterial pH iSTAT 7.243 (7.35-7.45)
[2022-07-06] MEDS ORDERED: DEXTROSE 10% 250 ML BAG IV PRN (02:20)
[2022-07-06] MEDS ORDERED: GLUCAGON 1 MG VIAL IM PRN (02:20)
[2022-07-06] MEDS: PANTOPRAZOLE 40 MG VIAL IV SCH (02:30)
[2022-07-06] MEDS ORDERED: cefTRIAXone 1,000 MG in SODIUM CHLORIDE 0.9% 100 ML IV SCH (02:30)
[2022-07-06] MEDS: methylPREDNISolone SOD SUC 40 MG/1 ML VIAL IV SCH ×2 (04:20→15:02)
[2022-07-06 04:33] LABS: Arterial Base Excess iSTAT 2 MMOL/L (-2.5-2.5); Arterial Bicarbonate iSTAT 29.7 MMOL/L (20-26); Arterial O2 Saturation iSTAT 52 % (95-100); Arterial PCO2 iSTAT 66 MM HG (35-48); Arterial PO2 iSTAT 33 MM HG (80-95); Arterial Total CO2 iSTAT 32 MMO/L (23-27); Arterial pH iSTAT 7.262 (7.35-7.45)
[2022-07-06 04:33] LABS: Arterial Base Excess iSTAT 2 MMOL/L (-2.5-2.5); Arterial Bicarbonate iSTAT 28.6 MMOL/L (20-26); Arterial O2 Saturation iSTAT 74 % (95-100); Arterial PCO2 iSTAT 56 MM HG (35-48); Arterial PO2 iSTAT 43 MM HG (80-95); Arterial Total CO2 iSTAT 30 MMO/L (23-27); Arterial pH iSTAT 7.321 (7.35-7.45)
[2022-07-06 04:58] LABS: Arterial Base Excess iSTAT 4 MMOL/L (-2.5-2.5); Arterial Bicarbonate iSTAT 30.3 MMOL/L (20-26); Arterial O2 Saturation iSTAT 100 % (95-100); Arterial PCO2 iSTAT 54 MM HG (35-48); Arterial PO2 iSTAT 305 MM HG (80-95); Arterial Total CO2 iSTAT 32 MMO/L (23-27); Arterial pH iSTAT 7.354 (7.35-7.45)
[2022-07-06 05:28] LABS: Basophils % 0.2 % (0.0-0.8); Eosinophils # 0.1 10*3/uL (0.0-0.87); Eosinophils % 1.4 % (0.00-10.9); Hematocrit 24.6 VOL% (35.7-47.0); Hemoglobin 7.3 GM/DL (12.0-16.0); Immature Granulocytes % 0.6 %; Immature Granulocytes Absolute 0.05 #; Lymphocytes % 12.7 % (21.3-54.2); Mean Corpuscular HGB Conc 29.7 GM/DL (32-36); Mean Platelet Volume 10.8 FL (9.6-12.0); Monocytes # 0.5 10*3/uL (0.11-0.8); Monocytes % 5.9 % (1.7-12.7); Neutrophils % 79.2 % (38.7-73.9); Platelet Count 195 T/CUMM (130-400); Red Blood Count 2.46 MC/CUMM (3.8-5.5); White Blood Count 8.1 T/CUMM (4-12)
[2022-07-06 05:42] LABS: Albumin 3.1 G/DL (3.4-5.0); Bilirubin,Total 0.4 MG/DL (0.20-1.00); Calcium 7.9 MG/DL (8.5-10.1); Potassium 4.2 MMOL/L (3.5-5.1); Total Protein 6.7 G/DL (6.4-8.2)
[2022-07-06] MEDS: INSULIN LISPRO 100 UNIT/ML SUBCUT SCH ×3 (07:24→18:13)
[2022-07-06] MEDS: HEPARIN 5,000 UNIT/1 ML VIAL SUBCUT SCH ×2 (09:03→20:37)
[2022-07-06 09:30] LABS: Hepatitis B Core IgM Quant 0.15 Index; Hepatitis B Surface Ag Quant < 0.10 Index; Hepatitis B Surface Ag Result Non-Reactive (NonReactive); Hepatitis C Virus Ab Quant 0.25 Index; Hepatitis C Virus Ab Result Non-Reactive (NonReactive)
[2022-07-06] MEDS ORDERED: SODIUM CHLORIDE 0.9% 1,000 ML IV PRN (10:53)
[2022-07-06] MEDS: AZITHROMYCIN INJ 500 MG in SODIUM CHLORIDE 0.9% 250 ML IV SCH (11:47)
[2022-07-07] MEDS: INSULIN LISPRO 100 UNIT/ML SUBCUT SCH ×4 (00:52→17:16)
[2022-07-07] MEDS: PANTOPRAZOLE 40 MG VIAL IV SCH (00:53)
[2022-07-07 03:13] LABS: Basophils % 0.4 % (0.0-0.8); Eosinophils % 0.2 % (0.00-10.9); Hematocrit 31.1 VOL% (35.7-47.0); Immature Granulocytes % 0.6 %; Immature Granulocytes Absolute 0.07 #; Lymphocytes # 1.7 10*3/uL (1.4-4.0); Lymphocytes % 15.2 % (21.3-54.2); Mean Corpuscular HGB Conc 32.2 GM/DL (32-36); Monocytes # 1.1 10*3/uL (0.11-0.8); Monocytes % 10.2 % (1.7-12.7); NRBC # 0.03 10*3/uL; Neutrophils % 73.4 % (38.7-73.9); Platelet Count 214 T/CUMM (130-400); Red Blood Count 3.31 MC/CUMM (3.8-5.5); Red Cell Distribution Width 16.4 % (9.3-17.3); White Blood Count 10.8 T/CUMM (4-12)
[2022-07-07] MEDS: methylPREDNISolone SOD SUC 40 MG/1 ML VIAL IV SCH ×2 (03:15→15:37)
[2022-07-07 03:32] LABS: Albumin 2.7 G/DL (3.4-5.0); Bilirubin,Total 0.4 MG/DL (0.20-1.00); Calcium 8.2 MG/DL (8.5-10.1); Osmolality,Calculated 284.7 MOS/KG (273-304); Potassium 4.1 MMOL/L (3.5-5.1); Total Protein 7.1 G/DL (6.4-8.2)
[2022-07-07 03:33] LABS: Calcium 7.8 MG/DL (8.5-10.1); Osmolality,Calculated 290.3 MOS/KG (273-304); Potassium 4.3 MMOL/L (3.5-5.1)
[2022-07-07 04:25] LABS: Arterial Base Excess iSTAT 4 MMOL/L (-2.5-2.5); Arterial Bicarbonate iSTAT 28.4 MMOL/L (20-26); Arterial O2 Saturation iSTAT 99 % (95-100); Arterial PCO2 iSTAT 44 MM HG (35-48); Arterial PO2 iSTAT 129 MM HG (80-95); Arterial Total CO2 iSTAT 30 MMO/L (23-27); Arterial pH iSTAT 7.422 (7.35-7.45)
[2022-07-07] MEDS: HEPARIN 5,000 UNIT/1 ML VIAL SUBCUT SCH ×2 (08:51→20:06)
[2022-07-07] MEDS: AZITHROMYCIN INJ 500 MG in SODIUM CHLORIDE 0.9% 250 ML IV SCH (15:37)
[2022-07-08] MEDS: INSULIN LISPRO 100 UNIT/ML SUBCUT SCH ×5 (00:42→17:27)
[2022-07-08] MEDS: PANTOPRAZOLE 40 MG VIAL IV SCH (00:49)
[2022-07-08] MEDS: methylPREDNISolone SOD SUC 40 MG/1 ML VIAL IV SCH ×2 (03:04→14:32)
[2022-07-08 04:00] LABS: Arterial Base Excess iSTAT 5 MMOL/L (-2.5-2.5); Arterial Bicarbonate iSTAT 28.8 MMOL/L (20-26); Arterial O2 Saturation iSTAT 100 % (95-100); Arterial PCO2 iSTAT 40 MM HG (35-48); Arterial PO2 iSTAT 191 MM HG (80-95); Arterial Total CO2 iSTAT 30 MMO/L (23-27); Arterial pH iSTAT 7.466 (7.35-7.45)
[2022-07-08 04:18] LABS: Basophils % 0.3 % (0.0-0.8); Eosinophils % 0.2 % (0.00-10.9); Hematocrit 31.4 VOL% (35.7-47.0); Hemoglobin 10.2 GM/DL (12.0-16.0); Lymphocytes # 1.7 10*3/uL (1.4-4.0); Lymphocytes % 17.4 % (21.3-54.2); Mean Corpuscular HGB Conc 32.5 GM/DL (32-36); Mean Corpuscular Volume 93.5 FL (87-102); Mean Platelet Volume 10.9 FL (9.6-12.0); Monocytes # 0.8 10*3/uL (0.11-0.8); NRBC # 0.02 10*3/uL; Neutrophils % 73.1 % (38.7-73.9); Platelet Count 220 T/CUMM (130-400); Red Blood Count 3.36 MC/CUMM (3.8-5.5); Red Cell Distribution Width 15.9 % (9.3-17.3); White Blood Count 9.8 T/CUMM (4-12)
[2022-07-08 04:45] LABS: Calcium 8.5 MG/DL (8.5-10.1); Osmolality,Calculated 284.7 MOS/KG (273-304); Potassium 4.2 MMOL/L (3.5-5.1)
[2022-07-08 04:48] LABS: Alanine Aminotransferase 27 U/L (13-56); Albumin 2.8 G/DL (3.4-5.0); Alkaline Phosphatase 61 U/L (45-117); Aspartate Amino Transferase 19 U/L (0-37); Bilirubin,Total < 0.39 MG/DL (0.20-1.00); Blood Urea Nitrogen 35 MG/DL (7-18); Calcium 8.7 MG/DL (8.5-10.1); Carbon Dioxide 25 MMOL/L (21-32); Chloride 99 MMOL/L (98-107); Glucose 145 MG/DL (74-106); Potassium 4.1 MMOL/L (3.5-5.1); Sodium 136 MMOL/L (136-145); Total Protein 7.5 G/DL (6.4-8.2)
[2022-07-08] MEDS: HEPARIN 5,000 UNIT/1 ML VIAL SUBCUT SCH ×2 (08:35→20:17)
[2022-07-08] MEDS: carvediloL 3.125 MG TABLET PO SCH ×2 (14:15→20:17)
[2022-07-08] MEDS: AZITHROMYCIN INJ 500 MG in SODIUM CHLORIDE 0.9% 250 ML IV SCH (14:31)
[2022-07-08 15:01] VITALS: BP 146/61
[2022-07-09] MEDS: INSULIN LISPRO 100 UNIT/ML SUBCUT SCH ×5 (00:59→20:05)
[2022-07-09] MEDS: methylPREDNISolone SOD SUC 40 MG/1 ML VIAL IV SCH ×3 (02:17→21:02)
[2022-07-09] MEDS: PANTOPRAZOLE 40 MG VIAL IV SCH (02:18)
[2022-07-09 04:15] LABS: Basophils % 0.3 % (0.0-0.8); Eosinophils # 0.1 10*3/uL (0.0-0.87); Eosinophils % 0.4 % (0.00-10.9); Hematocrit 31.4 VOL% (35.7-47.0); Hemoglobin 9.8 GM/DL (12.0-16.0); Immature Granulocytes % 1.8 %; Immature Granulocytes Absolute 0.21 #; Lymphocytes # 1.7 10*3/uL (1.4-4.0); Lymphocytes % 14.1 % (21.3-54.2); Mean Corpuscular HGB Conc 31.2 GM/DL (32-36); Mean Corpuscular Volume 93.5 FL (87-102); Monocytes # 0.8 10*3/uL (0.11-0.8); Monocytes % 6.8 % (1.7-12.7); NRBC # 0.04 10*3/uL; Neutrophils % 76.6 % (38.7-73.9); Platelet Count 243 T/CUMM (130-400); Red Blood Count 3.36 MC/CUMM (3.8-5.5); Red Cell Distribution Width 16.1 % (9.3-17.3); White Blood Count 11.7 T/CUMM (4-12)
[2022-07-09 04:28] LABS: Calcium 8.7 MG/DL (8.5-10.1); Potassium 4.3 MMOL/L (3.5-5.1)
[2022-07-09] MEDS ORDERED: amLODIPine 5 MG TABLET PO SCH (09:00)
[2022-07-09] MEDS: HEPARIN 5,000 UNIT/1 ML VIAL SUBCUT SCH ×2 (09:12→21:02)
[2022-07-09] MEDS: carvediloL 3.125 MG TABLET PO SCH ×2 (09:12→21:01)
[2022-07-09] MEDS: AZITHROMYCIN INJ 500 MG in SODIUM CHLORIDE 0.9% 250 ML IV SCH (14:11)
[2022-07-09] MEDS ORDERED: ALBUTEROL 2.5 MG/3 ML NEB RESP TX PRN (15:04)
[2022-07-09] MEDS ORDERED: LORATADINE 10 MG TABLET PO PRN (15:04)
[2022-07-09] MEDS ORDERED: INSULIN NPH 100 UNIT/ML SUBCUT SCH (21:00)
[2022-07-09] MEDS: LATANOPROST 0.005% OPH SOLN 2.5 ML BOTTLE BOTH EYES SCH (21:12)
[2022-07-10 04:18] LABS: Basophils # 0.1 10*3/uL (0.0-0.2); Basophils % 0.5 % (0.0-0.8); Eosinophils # 0.1 10*3/uL (0.0-0.87); Eosinophils % 0.6 % (0.00-10.9); Hematocrit 33.4 VOL% (35.7-47.0); Hemoglobin 10.5 GM/DL (12.0-16.0); Immature Granulocytes % 3.4 %; Immature Granulocytes Absolute 0.35 #; Lymphocytes % 19.4 % (21.3-54.2); Mean Corpuscular HGB Conc 31.4 GM/DL (32-36); Mean Platelet Volume 10.8 FL (9.6-12.0); Monocytes % 9.8 % (1.7-12.7); NRBC # 0.08 10*3/uL; Neutrophils % 66.3 % (38.7-73.9); Platelet Count 276 T/CUMM (130-400); Red Blood Count 3.59 MC/CUMM (3.8-5.5); Red Cell Distribution Width 15.9 % (9.3-17.3); White Blood Count 10.3 T/CUMM (4-12)
[2022-07-10 04:31] LABS: Calcium 8.1 MG/DL (8.5-10.1); Osmolality,Calculated 292.7 MOS/KG (273-304)
[2022-07-10] MEDS: INSULIN LISPRO 100 UNIT/ML SUBCUT SCH ×4 (08:23→20:24)
[2022-07-10] MEDS: carvediloL 3.125 MG TABLET PO SCH ×2 (08:38→21:06)
[2022-07-10] MEDS: HEPARIN 5,000 UNIT/1 ML VIAL SUBCUT SCH ×2 (08:38→21:06)
[2022-07-10] MEDS: PANTOPRAZOLE 40 MG TABLET PO SCH (08:38)
[2022-07-10] MEDS: amLODIPine 2.5 MG TABLET PO SCH (08:39)
[2022-07-10] MEDS: methylPREDNISolone SOD SUC 40 MG/1 ML VIAL IV SCH ×2 (08:39→21:07)
[2022-07-10] MEDS ORDERED: NON-FORMULARY MEDICATION (Ferric Citrate [Auryxia] 210 mg iron Tablet) PO SCH (09:00)
[2022-07-10] MEDS: AZITHROMYCIN INJ 500 MG in SODIUM CHLORIDE 0.9% 250 ML IV SCH (14:05)
[2022-07-10] MEDS: LATANOPROST 0.005% OPH SOLN 2.5 ML BOTTLE BOTH EYES SCH (21:07)
[2022-07-11 04:33] LABS: Basophils # 0.1 10*3/uL (0.0-0.2); Basophils % 0.7 % (0.0-0.8); Eosinophils # 0.2 10*3/uL (0.0-0.87); Hemoglobin 10.3 GM/DL (12.0-16.0); Immature Granulocytes % 4.1 %; Immature Granulocytes Absolute 0.44 #; Lymphocytes # 2.2 10*3/uL (1.4-4.0); Lymphocytes % 20.2 % (21.3-54.2); Mean Corpuscular HGB Conc 31.2 GM/DL (32-36); Mean Platelet Volume 10.4 FL (9.6-12.0); Monocytes # 1.1 10*3/uL (0.11-0.8); Monocytes % 9.9 % (1.7-12.7); NRBC # 0.05 10*3/uL; Neutrophils % 63.1 % (38.7-73.9); Platelet Count 261 T/CUMM (130-400); Red Blood Count 3.51 MC/CUMM (3.8-5.5); Red Cell Distribution Width 15.9 % (9.3-17.3); White Blood Count 10.8 T/CUMM (4-12)
[2022-07-11 04:50] LABS: Calcium 8.1 MG/DL (8.5-10.1); Osmolality,Calculated 299.7 MOS/KG (273-304); Potassium 4.4 MMOL/L (3.5-5.1)
[2022-07-11] MEDS: INSULIN LISPRO 100 UNIT/ML SUBCUT SCH ×2 (08:20→11:23)
[2022-07-11] MEDS: PANTOPRAZOLE 40 MG TABLET PO SCH (08:47)
[2022-07-11] MEDS: amLODIPine 2.5 MG TABLET PO SCH (08:47)
[2022-07-11] MEDS: methylPREDNISolone SOD SUC 40 MG/1 ML VIAL IV SCH (08:47)
[2022-07-11] MEDS: carvediloL 3.125 MG TABLET PO SCH (08:47)
[2022-07-11] MEDS: HEPARIN 5,000 UNIT/1 ML VIAL SUBCUT SCH (08:47)
== END 2022-07-11 13:17 | disposition home health service (06) | DRG 208 ==
LOC: EDBD → EDUNIT# → N.ED 20:26 → SUATTDRO 07-06 00:06 → N.CVR 07-06 00:06 → N.CC 07-06 17:46
PROVIDERS: ADMIT Internal Medicine; ATTEND Internal Medicine

== ENCOUNTER 2022-07-14 18:42 | Inpatient (IN) ==
[2022-07-14] MEDS ORDERED: methylPREDNISolone SOD SUC 125 MG/2 ML VIAL IV STA ×2 (19:14→19:16)
[2022-07-14] MEDS ORDERED: FUROSEMIDE 40 MG/4 ML VIAL IV STA (19:15)
[2022-07-14] MEDS ORDERED: hydrALAZINE 20 MG/1 ML VIAL IV STA (19:15)
[2022-07-14] MEDS ORDERED: ASPIRIN 325 MG TABLET PO STA (19:16)
[2022-07-14] MEDS ORDERED: MORPHINE 2 MG/1 ML SYRINGE IV STA (19:16)
[2022-07-14] MEDS ORDERED: FUROSEMIDE 100 MG/10 ML VIAL IV STA (19:16)
[2022-07-14] MEDS ORDERED: ONDANSETRON 4 MG/2 ML VIAL IV STA (19:16)
[2022-07-14] MEDS ORDERED: ALBUTEROL/IPRATROPIUM 3 ML NEB RESP TX STA (19:16)
[2022-07-14 19:30] LABS: Basophils # 0.1 10*3/uL (0.0-0.2); Basophils % 0.3 % (0.0-0.8); Eosinophils # 0.5 10*3/uL (0.0-0.87); Eosinophils % 3.2 % (0.00-10.9); Hemoglobin 10.7 GM/DL (12.0-16.0); Immature Granulocytes % 1.9 %; Immature Granulocytes Absolute 0.27 #; Lymphocytes # 1.6 10*3/uL (1.4-4.0); Lymphocytes % 11.2 % (21.3-54.2); Mean Corpuscular HGB Conc 31.5 GM/DL (32-36); Mean Corpuscular Volume 93.9 FL (87-102); Mean Platelet Volume 10.1 FL (9.6-12.0); Monocytes # 1.2 10*3/uL (0.11-0.8); Monocytes % 8.6 % (1.7-12.7); Neutrophils % 74.8 % (38.7-73.9); Platelet Count 261 T/CUMM (130-400); Red Blood Count 3.62 MC/CUMM (3.8-5.5); Red Cell Distribution Width 16.8 % (9.3-17.3); White Blood Count 14.4 T/CUMM (4-12)
[2022-07-14] MEDS ORDERED: ALBUTEROL NEB SOLN 5 MG/ML 20 ML/BOTTLE CONT NEB SCH (19:30)
[2022-07-14 19:32] LABS: Arterial Base Excess iSTAT -8 MMOL/L (-2.5-2.5); Arterial O2 Saturation iSTAT 94 % (95-100); Arterial PCO2 iSTAT 39 MM HG (35-48); Arterial PO2 iSTAT 82 MM HG (80-95); Arterial Total CO2 iSTAT 19 MMO/L (23-27); Arterial pH iSTAT 7.276 (7.35-7.45)
[2022-07-14 19:50] LABS: Albumin 3.1 G/DL (3.4-5.0); Bilirubin,Total 0.5 MG/DL (0.20-1.00); Calcium 8.4 MG/DL (8.5-10.1); Osmolality,Calculated 311.4 MOS/KG (273-304); Potassium 5.7 MMOL/L (3.5-5.1); Total Protein 8.2 G/DL (6.4-8.2)
[2022-07-14] MEDS ORDERED: SODIUM ZIRCONIUM CYCLOSILICATE 10 GM PACK PO ONE (21:15)
[2022-07-14] MEDS ORDERED: hydrALAZINE 20 MG/1 ML VIAL IV PRN (22:01)
[2022-07-14] MEDS ORDERED: GLUCAGON 1 MG VIAL IM PRN (22:01)
[2022-07-14] MEDS ORDERED: ONDANSETRON 4 MG/2 ML VIAL IV PRN (22:01)
[2022-07-14] MEDS ORDERED: diphenhydrAMINE CAP 25 MG CAPSULE PO PRN (22:01)
[2022-07-14] MEDS ORDERED: MORPHINE 2 MG/1 ML SYRINGE IV PRN (22:01)
[2022-07-14] MEDS ORDERED: ZALEPLON 5 MG CAPSULE PO PRN (22:01)
[2022-07-14] MEDS ORDERED: NICOTINE 21 MG/24 HR PATCH TRANSDERM PRN (22:01)
[2022-07-14] MEDS ORDERED: DEXTROSE 10% 250 ML BAG IV PRN (22:01)
[2022-07-14] MEDS ORDERED: guaiFENesin/DM ER 600-30 MG TABLET PO PRN (22:01)
[2022-07-14] MEDS ORDERED: ACETAMINOPHEN 325 MG TABLET PO PRN (22:01)
[2022-07-14] MEDS: ALBUTEROL/IPRATROPIUM 3 ML NEB RESP TX SCH (23:10)
[2022-07-15] MEDS: ALBUTEROL/IPRATROPIUM 3 ML NEB RESP TX SCH ×6 (03:10→23:28)
[2022-07-15 04:49] LABS: Basophils % 0.3 % (0.0-0.8); Hematocrit 30.4 VOL% (35.7-47.0); Hemoglobin 9.5 GM/DL (12.0-16.0); Immature Granulocytes Absolute 0.21 #; Lymphocytes # 0.6 10*3/uL (1.4-4.0); Lymphocytes % 5.1 % (21.3-54.2); Mean Corpuscular HGB Conc 31.3 GM/DL (32-36); Mean Corpuscular Volume 94.1 FL (87-102); Mean Platelet Volume 10.8 FL (9.6-12.0); Monocytes # 0.3 10*3/uL (0.11-0.8); Monocytes % 2.4 % (1.7-12.7); Neutrophils % 90.2 % (38.7-73.9); Platelet Count 234 T/CUMM (130-400); Red Blood Count 3.23 MC/CUMM (3.8-5.5); Red Cell Distribution Width 16.5 % (9.3-17.3); White Blood Count 10.7 T/CUMM (4-12)
[2022-07-15 05:12] LABS: Calcium 8.7 MG/DL (8.5-10.1); Osmolality,Calculated 319.2 MOS/KG (273-304)
[2022-07-15 05:42] LABS: Potassium 6.9 MMOL/L (3.5-5.1)
[2022-07-15] MEDS ORDERED: SODIUM ZIRCONIUM CYCLOSILICATE 10 GM PACK PO ONE (05:46)
[2022-07-15] MEDS ORDERED: SODIUM POLYSTYRENE SULFATE 15 GM/60 ML BOTTLE PO ONE (06:10)
[2022-07-15] MEDS ORDERED: INSULIN REGULAR 10 UNIT, CALCIUM GLUCONATE 1,000 MG in DEXTROSE 10% 250 ML IV ONE (06:15)
[2022-07-15] MEDS ORDERED: CALCIUM GLUCONATE RIDER 1,000 MG/50 ML PREMIX IV ONE (08:00)
[2022-07-15] MEDS: PANTOPRAZOLE 40 MG TABLET PO SCH (09:00)
[2022-07-15] MEDS: HEPARIN 5,000 UNIT/1 ML VIAL SUBCUT SCH ×2 (09:00→21:09)
[2022-07-15 10:37] LABS: Calcium 8.7 MG/DL (8.5-10.1); Potassium 5.5 MMOL/L (3.5-5.1)
[2022-07-15] MEDS: carvediloL 3.125 MG TABLET PO SCH ×2 (15:51→21:09)
[2022-07-15] MEDS: amLODIPine 2.5 MG TABLET PO SCH (15:51)
[2022-07-15] MEDS ORDERED: ROSUVASTATIN 20 MG TABLET PO SCH (21:00)
[2022-07-16] MEDS: ALBUTEROL/IPRATROPIUM 3 ML NEB RESP TX SCH ×3 (03:33→11:22)
[2022-07-16 06:13] LABS: Basophils % 0.3 % (0.0-0.8); Eosinophils # 0.3 10*3/uL (0.0-0.87); Eosinophils % 4.2 % (0.00-10.9); Hematocrit 28.2 VOL% (35.7-47.0); Hemoglobin 8.9 GM/DL (12.0-16.0); Immature Granulocytes Absolute 0.07 #; Lymphocytes # 1.3 10*3/uL (1.4-4.0); Lymphocytes % 18.2 % (21.3-54.2); Mean Corpuscular HGB Conc 31.6 GM/DL (32-36); Mean Corpuscular Volume 93.4 FL (87-102); Mean Platelet Volume 10.7 FL (9.6-12.0); Monocytes # 0.9 10*3/uL (0.11-0.8); Monocytes % 12.7 % (1.7-12.7); Neutrophils % 63.6 % (38.7-73.9); Platelet Count 208 T/CUMM (130-400); Red Blood Count 3.02 MC/CUMM (3.8-5.5); Red Cell Distribution Width 16.9 % (9.3-17.3); White Blood Count 6.9 T/CUMM (4-12)
[2022-07-16 06:26] LABS: Calcium 7.9 MG/DL (8.5-10.1); Osmolality,Calculated 308.4 MOS/KG (273-304); Potassium 4.2 MMOL/L (3.5-5.1)
[2022-07-16] MEDS ORDERED: ASPIRIN EC 81 MG TABLET PO SCH (09:00)
[2022-07-16] MEDS: HEPARIN 5,000 UNIT/1 ML VIAL SUBCUT SCH (09:17)
[2022-07-16] MEDS: PANTOPRAZOLE 40 MG TABLET PO SCH (09:19)
[2022-07-16] MEDS: amLODIPine 2.5 MG TABLET PO SCH (09:19)
[2022-07-16] MEDS: carvediloL 3.125 MG TABLET PO SCH (09:19)
[2022-07-16] MEDS ORDERED: FLUCONAZOLE 200 MG TABLET PO ONE (11:18)
[2022-07-16 12:32] VITALS: BP 150/62
== END 2022-07-16 14:15 | disposition home health service (06) | DRG 291 ==
LOC: N.ED 18:42 → N.TELEN 22:01
PROVIDERS: ADMIT Internal Medicine Geriatric Medicine; ATTEND Internal Medicine Geriatric Medicine

== ENCOUNTER 2022-08-31 11:27 | Observation (INO) ==
[2022-08-31 12:53] LABS: Basophils # 0.1 10*3/uL (0.0-0.2); Basophils % 0.6 % (0.0-0.8); Eosinophils # 0.3 10*3/uL (0.0-0.87); Eosinophils % 3.9 % (0.00-10.9); Hematocrit 36.9 VOL% (35.7-47.0); Immature Granulocytes % 0.4 %; Immature Granulocytes Absolute 0.03 #; Lymphocytes # 1.5 10*3/uL (1.4-4.0); Mean Corpuscular HGB Conc 29.8 GM/DL (32-36); Mean Corpuscular Volume 94.4 FL (87-102); Mean Platelet Volume 10.4 FL (9.6-12.0); Monocytes # 0.5 10*3/uL (0.11-0.8); Monocytes % 6.1 % (1.7-12.7); Platelet Count 268 T/CUMM (130-400); Red Blood Count 3.91 MC/CUMM (3.8-5.5); Red Cell Distribution Width 17.4 % (9.3-17.3); White Blood Count 7.9 T/CUMM (4-12)
[2022-08-31 13:01] LABS: Albumin 3.9 G/DL (3.4-5.0); Bilirubin,Total 0.5 MG/DL (0.20-1.00); Osmolality,Calculated 275.7 MOS/KG (273-304)
[2022-08-31] MEDS ORDERED: FUROSEMIDE 40 MG/4 ML VIAL IV STA (13:42)
[2022-08-31] MEDS ORDERED: FUROSEMIDE 100 MG/10 ML VIAL ONE (13:44)
[2022-08-31] MEDS ORDERED: ONDANSETRON 4 MG/2 ML VIAL IV PRN (15:24)
[2022-08-31] MEDS ORDERED: ACETAMINOPHEN 325 MG TABLET PO PRN (15:24)
[2022-08-31] MEDS ORDERED: LORATADINE 10 MG TABLET PO PRN (15:27)
[2022-08-31] MEDS ORDERED: ALBUTEROL/IPRATROPIUM 3 ML NEB RESP TX PRN (15:27)
[2022-08-31] MEDS ORDERED: GLUCAGON 1 MG VIAL IM PRN (15:30)
[2022-08-31] MEDS ORDERED: DEXTROSE 10% 250 ML BAG IV PRN (15:40)
[2022-08-31] MEDS ORDERED: hydrALAZINE 20 MG/1 ML VIAL IV STA (16:00)
[2022-08-31] MEDS ORDERED: hydrALAZINE 20 MG/1 ML VIAL ONE (16:13)
[2022-08-31] MEDS ORDERED: INSULIN LISPRO 100 UNIT/ML SUBCUT SCH (16:30)
[2022-08-31] MEDS ORDERED: NICOTINE 7 MG/24 HR PATCH TRANSDERM PRN (18:00)
[2022-08-31 18:19] VITALS: BP 171/72
[2022-08-31] MEDS ORDERED: LATANOPROST 0.005% OPH SOLN 2.5 ML BOTTLE BOTH EYES SCH (21:00)
[2022-08-31] MEDS ORDERED: carvediloL 3.125 MG TABLET PO SCH (21:00)
[2022-08-31] MEDS ORDERED: INSULIN NPH/REG 70/30 100 UNIT/ML SUBCUT SCH (21:00)
[2022-08-31] MEDS ORDERED: ROSUVASTATIN 20 MG TABLET PO SCH (21:00)
[2022-09-01] MEDS ORDERED: ASPIRIN EC 81 MG TABLET PO SCH (09:00)
[2022-09-01] MEDS ORDERED: NON-FORMULARY MEDICATION (Ferric Citrate [Auryxia] 210 mg iron Tablet) PO SCH (09:00)
[2022-09-01] MEDS ORDERED: PANTOPRAZOLE 40 MG TABLET PO SCH (09:00)
[2022-09-01] MEDS ORDERED: amLODIPine 10 MG TABLET PO SCH (09:00)
== END 2022-08-31 20:04 | disposition left against medical advice (07) ==
LOC: N.EDINP 11:27 → N.ED 11:27 → N.3E 18:09
PROVIDERS: ADMIT Internal Medicine; ATTEND Internal Medicine

== ENCOUNTER 2022-09-12 23:13 | Observation (INO) ==
[2022-09-12] MEDS ORDERED: FUROSEMIDE 40 MG/4 ML VIAL IV STA (23:59)
[2022-09-12] MEDS ORDERED: ALBUTEROL/IPRATROPIUM 3 ML NEB RESP TX STA (23:59)
[2022-09-13 00:33] LABS: Albumin 3.6 G/DL (3.4-5.0); Bilirubin,Total 0.4 MG/DL (0.20-1.00); Calcium 8.5 MG/DL (8.5-10.1); Osmolality,Calculated 293.4 MOS/KG (273-304); Total Protein 7.6 G/DL (6.4-8.2)
[2022-09-13 00:40] LABS: Basophils # 0.1 10*3/uL (0.0-0.2); Basophils % 0.6 % (0.0-0.8); Eosinophils # 0.4 10*3/uL (0.0-0.87); Eosinophils % 3.7 % (0.00-10.9); Hematocrit 33.2 VOL% (35.7-47.0); Hemoglobin 10.1 GM/DL (12.0-16.0); Immature Granulocytes % 0.8 %; Immature Granulocytes Absolute 0.08 #; Lymphocytes # 1.8 10*3/uL (1.4-4.0); Lymphocytes % 18.2 % (21.3-54.2); Mean Corpuscular HGB Conc 30.4 GM/DL (32-36); Mean Corpuscular Volume 94.1 FL (87-102); Mean Platelet Volume 11.2 FL (9.6-12.0); Monocytes # 0.6 10*3/uL (0.11-0.8); Monocytes % 6.2 % (1.7-12.7); Neutrophils % 70.5 % (38.7-73.9); Platelet Count 247 T/CUMM (130-400); Red Blood Count 3.53 MC/CUMM (3.8-5.5); Red Cell Distribution Width 17.6 % (9.3-17.3); White Blood Count 9.8 T/CUMM (4-12)
[2022-09-13 00:47] LABS: Partial Thromboplastin Time 34.4 SECS (23.7-32.9)
[2022-09-13] MEDS ORDERED: hydrALAZINE 20 MG/1 ML VIAL IV STA (01:38)
[2022-09-13] MEDS ORDERED: NICOTINE 21 MG/24 HR PATCH TRANSDERM PRN (02:15)
[2022-09-13] MEDS ORDERED: GLUCAGON 1 MG VIAL IM PRN (02:15)
[2022-09-13] MEDS ORDERED: ONDANSETRON 4 MG/2 ML VIAL IV PRN (02:15)
[2022-09-13] MEDS ORDERED: ACETAMINOPHEN 325 MG TABLET PO PRN (02:15)
[2022-09-13] MEDS ORDERED: hydrALAZINE 20 MG/1 ML VIAL IV PRN (02:27)
[2022-09-13] MEDS ORDERED: DEXTROSE 10% 250 ML BAG IV PRN (02:32)
[2022-09-13] MEDS ORDERED: LORATADINE 10 MG TABLET PO PRN (02:42)
[2022-09-13] MEDS: methylPREDNISolone SOD SUC 125 MG/2 ML VIAL IV SCH ×3 (03:16→18:26)
[2022-09-13] MEDS: ALBUTEROL/IPRATROPIUM 3 ML NEB RESP TX SCH ×3 (07:04→19:42)
[2022-09-13] MEDS: INSULIN LISPRO 100 UNIT/ML SUBCUT SCH ×4 (07:49→22:19)
[2022-09-13] MEDS: NON-FORMULARY MEDICATION (Ferric Citrate [Auryxia] 210 mg iron Tablet) PO SCH (09:24)
[2022-09-13] MEDS: ASPIRIN EC 81 MG TABLET PO SCH (09:24)
[2022-09-13] MEDS: PANTOPRAZOLE 40 MG TABLET PO SCH (09:24)
[2022-09-13] MEDS: MORPHINE 2 MG/1 ML SYRINGE IV PRN (14:09)
[2022-09-13] MEDS: carvediloL 3.125 MG TABLET PO SCH (18:25)
[2022-09-13] MEDS: ROSUVASTATIN 20 MG TABLET PO SCH (22:16)
[2022-09-13] MEDS: HEPARIN 5,000 UNIT/1 ML VIAL SUBCUT SCH (22:17)
[2022-09-13] MEDS: INSULIN NPH/REG 70/30 100 UNIT/ML SUBCUT SCH (22:19)
[2022-09-13] MEDS: LATANOPROST 0.005% OPH SOLN 2.5 ML BOTTLE BOTH EYES SCH (22:23)
[2022-09-14] MEDS: ALBUTEROL/IPRATROPIUM 3 ML NEB RESP TX SCH ×4 (00:44→19:12)
[2022-09-14] MEDS: methylPREDNISolone SOD SUC 125 MG/2 ML VIAL IV SCH (03:14)
[2022-09-14] MEDS: MORPHINE 2 MG/1 ML SYRINGE IV PRN (03:14)
[2022-09-14 05:41] LABS: Basophils % 0.1 % (0.0-0.8); Hematocrit 32.7 VOL% (35.7-47.0); Hemoglobin 9.9 GM/DL (12.0-16.0); Immature Granulocytes % 1.4 %; Immature Granulocytes Absolute 0.14 #; Lymphocytes % 9.7 % (21.3-54.2); Mean Corpuscular HGB Conc 30.3 GM/DL (32-36); Mean Corpuscular Volume 93.2 FL (87-102); Mean Platelet Volume 11.1 FL (9.6-12.0); Monocytes # 0.4 10*3/uL (0.11-0.8); Monocytes % 4.2 % (1.7-12.7); NRBC # 0.05 10*3/uL; Neutrophils % 84.6 % (38.7-73.9); Platelet Count 279 T/CUMM (130-400); Red Blood Count 3.51 MC/CUMM (3.8-5.5); Red Cell Distribution Width 17.7 % (9.3-17.3); White Blood Count 10.2 T/CUMM (4-12)
[2022-09-14 06:07] LABS: Osmolality,Calculated 281.1 MOS/KG (273-304); Potassium 4.2 MMOL/L (3.5-5.1)
[2022-09-14] MEDS: ASPIRIN EC 81 MG TABLET PO SCH (08:59)
[2022-09-14] MEDS: PANTOPRAZOLE 40 MG TABLET PO SCH (08:59)
[2022-09-14] MEDS: carvediloL 3.125 MG TABLET PO SCH ×2 (08:59→17:02)
[2022-09-14] MEDS: HEPARIN 5,000 UNIT/1 ML VIAL SUBCUT SCH ×2 (09:02→20:57)
[2022-09-14] MEDS: INSULIN LISPRO 100 UNIT/ML SUBCUT SCH ×4 (09:02→21:28)
[2022-09-14] MEDS: NON-FORMULARY MEDICATION (Ferric Citrate [Auryxia] 210 mg iron Tablet) PO SCH (09:02)
[2022-09-14 11:20] LABS: INR 1.1; PT Patient Result 11.7 SECS (10.1-12.1)
[2022-09-14 11:32] LABS: Albumin 3.9 G/DL (3.4-5.0)
[2022-09-14] MEDS: INSULIN NPH/REG 70/30 100 UNIT/ML SUBCUT SCH ×2 (13:53→21:28)
[2022-09-14] MEDS: PIPERACILLIN/TAZOBACTAM 3,375 MG in SODIUM CHLORIDE 0.9% 100 ML IV SCH (18:23)
[2022-09-14] MEDS: ROSUVASTATIN 20 MG TABLET PO SCH (22:07)
[2022-09-14] MEDS: LATANOPROST 0.005% OPH SOLN 2.5 ML BOTTLE BOTH EYES SCH (22:10)
[2022-09-15] MEDS: ALBUTEROL/IPRATROPIUM 3 ML NEB RESP TX SCH ×4 (00:10→22:10)
[2022-09-15 05:43] LABS: Basophils # 0.1 10*3/uL (0.0-0.2); Basophils % 0.5 % (0.0-0.8); Eosinophils # 0.1 10*3/uL (0.0-0.87); Eosinophils % 0.5 % (0.00-10.9); Hematocrit 34.7 VOL% (35.7-47.0); Hemoglobin 10.3 GM/DL (12.0-16.0); Immature Granulocytes % 1.6 %; Lymphocytes # 2.3 10*3/uL (1.4-4.0); Lymphocytes % 18.9 % (21.3-54.2); Mean Corpuscular HGB Conc 29.7 GM/DL (32-36); Mean Corpuscular Volume 96.1 FL (87-102); Monocytes # 0.8 10*3/uL (0.11-0.8); Monocytes % 6.5 % (1.7-12.7); NRBC # 0.09 10*3/uL; Platelet Count 314 T/CUMM (130-400); Red Blood Count 3.61 MC/CUMM (3.8-5.5); Red Cell Distribution Width 18.4 % (9.3-17.3); White Blood Count 12.3 T/CUMM (4-12)
[2022-09-15] MEDS: PIPERACILLIN/TAZOBACTAM 3,375 MG in SODIUM CHLORIDE 0.9% 100 ML IV SCH ×2 (05:55→18:16)
[2022-09-15 06:02] LABS: Calcium 8.3 MG/DL (8.5-10.1); Osmolality,Calculated 285.7 MOS/KG (273-304)
[2022-09-15] MEDS: INSULIN LISPRO 100 UNIT/ML SUBCUT SCH ×4 (07:55→21:10)
[2022-09-15] MEDS: PANTOPRAZOLE 40 MG TABLET PO SCH (09:03)
[2022-09-15] MEDS: carvediloL 3.125 MG TABLET PO SCH ×2 (09:03→16:58)
[2022-09-15] MEDS: methylPREDNISolone SOD SUC 40 MG/1 ML VIAL IV SCH (09:07)
[2022-09-15] MEDS: NON-FORMULARY MEDICATION (Ferric Citrate [Auryxia] 210 mg iron Tablet) PO SCH (09:08)
[2022-09-15] MEDS: INSULIN NPH/REG 70/30 100 UNIT/ML SUBCUT SCH ×2 (09:08→21:10)
[2022-09-15] MEDS: ROSUVASTATIN 20 MG TABLET PO SCH (21:10)
[2022-09-15] MEDS: DOCUSATE SODIUM 100 MG CAPSULE PO SCH (21:10)
[2022-09-15] MEDS: LATANOPROST 0.005% OPH SOLN 2.5 ML BOTTLE BOTH EYES SCH (21:10)
[2022-09-16] MEDS: ALBUTEROL/IPRATROPIUM 3 ML NEB RESP TX SCH ×2 (02:04→08:15)
[2022-09-16 04:51] LABS: Basophils # 0.1 10*3/uL (0.0-0.2); Basophils % 0.5 % (0.0-0.8); Eosinophils # 0.1 10*3/uL (0.0-0.87); Eosinophils % 0.8 % (0.00-10.9); Hemoglobin 10.4 GM/DL (12.0-16.0); Immature Granulocytes % 2.7 %; Immature Granulocytes Absolute 0.36 #; Lymphocytes # 2.5 10*3/uL (1.4-4.0); Lymphocytes % 18.4 % (21.3-54.2); Mean Corpuscular HGB Conc 29.7 GM/DL (32-36); Mean Corpuscular Volume 96.7 FL (87-102); Mean Platelet Volume 10.6 FL (9.6-12.0); Monocytes # 1.1 10*3/uL (0.11-0.8); Monocytes % 8.4 % (1.7-12.7); NRBC # 0.11 10*3/uL; Neutrophils % 69.2 % (38.7-73.9); Platelet Count 324 T/CUMM (130-400); Red Blood Count 3.62 MC/CUMM (3.8-5.5); Red Cell Distribution Width 18.3 % (9.3-17.3); White Blood Count 13.3 T/CUMM (4-12)
[2022-09-16 05:06] LABS: Osmolality,Calculated 296.5 MOS/KG (273-304); Potassium 4.4 MMOL/L (3.5-5.1)
[2022-09-16] MEDS: PIPERACILLIN/TAZOBACTAM 3,375 MG in SODIUM CHLORIDE 0.9% 100 ML IV SCH (05:30)
[2022-09-16] MEDS ORDERED: LINACLOTIDE 145 MCG CAPSULE PO SCH (07:30)
[2022-09-16] MEDS ORDERED: POLYETHYLENE GLYCOL POWDER 17 GM PACK PO SCH (09:00)
[2022-09-16] MEDS: INSULIN LISPRO 100 UNIT/ML SUBCUT SCH ×2 (10:20→12:01)
[2022-09-16] MEDS: INSULIN NPH/REG 70/30 100 UNIT/ML SUBCUT SCH (10:21)
[2022-09-16] MEDS: NON-FORMULARY MEDICATION (Ferric Citrate [Auryxia] 210 mg iron Tablet) PO SCH (10:21)
[2022-09-16] MEDS: PANTOPRAZOLE 40 MG TABLET PO SCH (11:45)
[2022-09-16] MEDS: carvediloL 3.125 MG TABLET PO SCH (11:45)
[2022-09-16] MEDS: ASPIRIN EC 81 MG TABLET PO SCH (11:45)
[2022-09-16] MEDS: DOCUSATE SODIUM 100 MG CAPSULE PO SCH (11:45)
[2022-09-16] MEDS: HEPARIN 5,000 UNIT/1 ML VIAL SUBCUT SCH (11:46)
[2022-09-16] MEDS: methylPREDNISolone SOD SUC 40 MG/1 ML VIAL IV SCH (11:46)
[2022-09-16 12:34] VITALS: BP 158/52
== END 2022-09-16 12:58 | disposition home or self-care (01) ==
LOC: EDBD → EDUNIT# → N.ED 23:13 → N.TELEN 23:13 → SUATTDRO 09-13 02:15 → N.TELEN 09-13 03:38
PROVIDERS: ADMIT Internal Medicine; ATTEND Hospitalist

== ENCOUNTER 2022-11-08 06:51 | Inpatient (IN) ==
[2022-11-08] MEDS ORDERED: ALBUTEROL NEB SOLN 5 MG/ML 20 ML/BOTTLE CONT NEB STA (07:23)
[2022-11-08 07:28] LABS: Basophils % 0.5 % (0.0-0.8); Eosinophils # 0.2 10*3/uL (0.0-0.87); Eosinophils % 1.9 % (0.00-10.9); Hematocrit 30.8 VOL% (35.7-47.0); Hemoglobin 9.3 GM/DL (12.0-16.0); Immature Granulocytes % 0.5 %; Immature Granulocytes Absolute 0.04 #; Lymphocytes # 0.9 10*3/uL (1.4-4.0); Lymphocytes % 10.9 % (21.3-54.2); Mean Corpuscular HGB Conc 30.2 GM/DL (32-36); Mean Corpuscular Volume 97.8 FL (87-102); Mean Platelet Volume 10.6 FL (9.6-12.0); Monocytes # 0.6 10*3/uL (0.11-0.8); Monocytes % 7.2 % (1.7-12.7); Platelet Count 243 T/CUMM (130-400); Red Blood Count 3.15 MC/CUMM (3.8-5.5); Red Cell Distribution Width 17.9 % (9.3-17.3); White Blood Count 8.3 T/CUMM (4-12)
[2022-11-08] MEDS ORDERED: ALBUTEROL 2.5 MG/3 ML NEB RESP TX ONE (07:33)
[2022-11-08 07:48] LABS: Albumin 3.7 G/DL (3.4-5.0); Bilirubin,Total 0.4 MG/DL (0.20-1.00); Calcium 8.6 MG/DL (8.5-10.1); Osmolality,Calculated 294.5 MOS/KG (273-304); Potassium 4.3 MMOL/L (3.5-5.1); Total Protein 7.6 G/DL (6.4-8.2)
[2022-11-08 08:27] LABS: Arterial Base Excess iSTAT 2 MMOL/L (-2.5-2.5); Arterial Bicarbonate iSTAT 28.2 MMOL/L (20-26); Arterial O2 Saturation iSTAT 88 % (95-100); Arterial PCO2 iSTAT 52 MM HG (35-48); Arterial PO2 iSTAT 58 MM HG (80-95); Arterial Total CO2 iSTAT 30 MMO/L (23-27); Arterial pH iSTAT 7.344 (7.35-7.45)
[2022-11-08] MEDS ORDERED: ACETAMINOPHEN 325 MG TABLET PO PRN (08:46)
[2022-11-08] MEDS ORDERED: ALBUTEROL 2.5 MG/3 ML NEB RESP TX PRN (08:46)
[2022-11-08] MEDS ORDERED: ONDANSETRON 4 MG/2 ML VIAL IV PRN (08:46)
[2022-11-08] MEDS ORDERED: O2 BOTH NARES PRN (08:50)
[2022-11-08] MEDS ORDERED: LORATADINE 10 MG TABLET PO PRN (08:50)
[2022-11-08] MEDS: ASPIRIN EC 81 MG TABLET PO SCH (09:59)
[2022-11-08] MEDS: carvediloL 3.125 MG TABLET PO SCH ×2 (10:00→20:26)
[2022-11-08] MEDS: PANTOPRAZOLE 40 MG TABLET PO SCH (10:00)
[2022-11-08] MEDS: NON-FORMULARY MEDICATION (Ferric Citrate [Auryxia] 210 mg iron Tablet) PO SCH (10:00)
[2022-11-08] MEDS: DORZOLAMIDE/TIMOLOL OPH SOLN 10 ML BOTTLE BOTH EYES SCH ×2 (10:00→20:26)
[2022-11-08] MEDS: amLODIPine 10 MG TABLET PO SCH (10:00)
[2022-11-08] MEDS: POLYETHYLENE GLYCOL POWDER 17 GM PACK PO SCH (10:15)
[2022-11-08] MEDS: INSULIN NPH/REG 70/30 100 UNIT/ML SUBCUT SCH ×2 (10:15→20:27)
[2022-11-08] MEDS: HEPARIN 5,000 UNIT/1 ML VIAL SUBCUT SCH ×2 (10:15→20:27)
[2022-11-08] MEDS: hydrALAZINE 20 MG/1 ML VIAL IV PRN (17:10)
[2022-11-08] MEDS ORDERED: NICOTINE 21 MG/24 HR PATCH TRANSDERM PRN (20:11)
[2022-11-08] MEDS: ROSUVASTATIN 20 MG TABLET PO SCH (20:26)
[2022-11-08] MEDS: LATANOPROST 0.005% OPH SOLN 2.5 ML BOTTLE BOTH EYES SCH (20:26)
[2022-11-08] MEDS ORDERED: DEXTROSE 10% 250 ML IV ONE (23:57)
[2022-11-09] MEDS: DEXTROSE 10% 250 ML BAG IV PRN ×2 (00:06→00:42)
[2022-11-09 03:55] LABS: Arterial Base Excess iSTAT 3 MMOL/L (-2.5-2.5); Arterial Bicarbonate iSTAT 29.3 MMOL/L (20-26); Arterial O2 Saturation iSTAT 93 % (95-100); Arterial PCO2 iSTAT 54 MM HG (35-48); Arterial PO2 iSTAT 70 MM HG (80-95); Arterial Total CO2 iSTAT 31 MMO/L (23-27); Arterial pH iSTAT 7.347 (7.35-7.45)
[2022-11-09 04:03] LABS: Basophils % 0.5 % (0.0-0.8); Eosinophils # 0.3 10*3/uL (0.0-0.87); Eosinophils % 3.3 % (0.00-10.9); Hematocrit 29.1 VOL% (35.7-47.0); Hemoglobin 8.7 GM/DL (12.0-16.0); Immature Granulocytes % 0.4 %; Immature Granulocytes Absolute 0.03 #; Lymphocytes # 0.8 10*3/uL (1.4-4.0); Lymphocytes % 10.8 % (21.3-54.2); Mean Corpuscular HGB Conc 29.9 GM/DL (32-36); Mean Corpuscular Volume 96.7 FL (87-102); Mean Platelet Volume 10.5 FL (9.6-12.0); Monocytes # 0.6 10*3/uL (0.11-0.8); Monocytes % 7.5 % (1.7-12.7); Neutrophils % 77.5 % (38.7-73.9); Platelet Count 246 T/CUMM (130-400); Red Blood Count 3.01 MC/CUMM (3.8-5.5); Red Cell Distribution Width 17.5 % (9.3-17.3); White Blood Count 7.8 T/CUMM (4-12)
[2022-11-09 04:17] LABS: Calcium 8.4 MG/DL (8.5-10.1); Osmolality,Calculated 282.5 MOS/KG (273-304); Potassium 4.2 MMOL/L (3.5-5.1)
[2022-11-09] MEDS ORDERED: CYCLOBENZAPRINE 10 MG TABLET PO ONE (05:40)
[2022-11-09] MEDS ORDERED: GLUCAGON 1 MG VIAL IM PRN (07:42)
[2022-11-09] MEDS: LINACLOTIDE 145 MCG CAPSULE PO SCH (08:18)
[2022-11-09] MEDS: carvediloL 3.125 MG TABLET PO SCH ×2 (08:18→16:56)
[2022-11-09] MEDS: HEPARIN 5,000 UNIT/1 ML VIAL SUBCUT SCH ×2 (08:19→21:20)
[2022-11-09] MEDS: ASPIRIN EC 81 MG TABLET PO SCH (08:19)
[2022-11-09] MEDS: DORZOLAMIDE/TIMOLOL OPH SOLN 10 ML BOTTLE BOTH EYES SCH ×2 (08:19→21:21)
[2022-11-09] MEDS: NON-FORMULARY MEDICATION (Ferric Citrate [Auryxia] 210 mg iron Tablet) PO SCH (08:19)
[2022-11-09] MEDS: amLODIPine 10 MG TABLET PO SCH (08:20)
[2022-11-09] MEDS: PANTOPRAZOLE 40 MG TABLET PO SCH (08:20)
[2022-11-09] MEDS: POLYETHYLENE GLYCOL POWDER 17 GM PACK PO SCH (08:20)
[2022-11-09] MEDS: ALBUTEROL/IPRATROPIUM 3 ML NEB RESP TX SCH ×2 (13:28→20:04)
[2022-11-09] MEDS: INSULIN LISPRO 100 UNIT/ML SUBCUT SCH ×2 (16:35→21:32)
[2022-11-09] MEDS: LATANOPROST 0.005% OPH SOLN 2.5 ML BOTTLE BOTH EYES SCH (21:20)
[2022-11-09] MEDS: ROSUVASTATIN 20 MG TABLET PO SCH (21:20)
[2022-11-09] MEDS: hydrALAZINE 20 MG/1 ML VIAL IV PRN (22:54)
[2022-11-10] MEDS: ALBUTEROL/IPRATROPIUM 3 ML NEB RESP TX SCH ×3 (00:38→13:24)
[2022-11-10 04:52] LABS: Basophils # 0.1 10*3/uL (0.0-0.2); Basophils % 0.9 % (0.0-0.8); Eosinophils # 0.3 10*3/uL (0.0-0.87); Eosinophils % 5.6 % (0.00-10.9); Hematocrit 27.8 VOL% (35.7-47.0); Hemoglobin 8.3 GM/DL (12.0-16.0); Immature Granulocytes % 0.5 %; Immature Granulocytes Absolute 0.03 #; Lymphocytes # 1.1 10*3/uL (1.4-4.0); Lymphocytes % 19.5 % (21.3-54.2); Mean Corpuscular HGB Conc 29.9 GM/DL (32-36); Mean Corpuscular Volume 97.2 FL (87-102); Monocytes # 0.5 10*3/uL (0.11-0.8); Monocytes % 7.9 % (1.7-12.7); Neutrophils % 65.6 % (38.7-73.9); Platelet Count 230 T/CUMM (130-400); Red Blood Count 2.86 MC/CUMM (3.8-5.5); Red Cell Distribution Width 17.2 % (9.3-17.3); White Blood Count 5.7 T/CUMM (4-12)
[2022-11-10 05:13] LABS: Calcium 8.1 MG/DL (8.5-10.1); Osmolality,Calculated 282.7 MOS/KG (273-304); Potassium 4.4 MMOL/L (3.5-5.1)
[2022-11-10] MEDS: INSULIN LISPRO 100 UNIT/ML SUBCUT SCH ×2 (08:32→12:18)
[2022-11-10] MEDS: HEPARIN 5,000 UNIT/1 ML VIAL SUBCUT SCH (08:33)
[2022-11-10] MEDS: POLYETHYLENE GLYCOL POWDER 17 GM PACK PO SCH (08:33)
[2022-11-10] MEDS: amLODIPine 10 MG TABLET PO SCH (08:33)
[2022-11-10] MEDS: DORZOLAMIDE/TIMOLOL OPH SOLN 10 ML BOTTLE BOTH EYES SCH (08:33)
[2022-11-10] MEDS: LINACLOTIDE 145 MCG CAPSULE PO SCH (08:34)
[2022-11-10] MEDS: ASPIRIN EC 81 MG TABLET PO SCH (08:34)
[2022-11-10] MEDS: NON-FORMULARY MEDICATION (Ferric Citrate [Auryxia] 210 mg iron Tablet) PO SCH (08:34)
[2022-11-10] MEDS: carvediloL 3.125 MG TABLET PO SCH (08:34)
[2022-11-10 14:52] VITALS: BP 151/68
== END 2022-11-10 14:45 | disposition home health service (06) | DRG 291 ==
LOC: N.ED 06:51 → N.EDINP 08:46 → SUATTDRO 08:46 → N.CC 09:18
PROVIDERS: ADMIT Family Medicine; ATTEND Internal Medicine